=== PATIENT | female | born 1935 | race Caucasian/White ===

== ENCOUNTER → 2018-05-03 | Outpatient (CLI) | END | disposition home or self-care (01) ==

== ENCOUNTER → 2018-07-08 | Outpatient (CLI) | payer MEDICARE, OTHER ==
[~2018-07-08] MED LIST: ASPI81TA52 PO; CALC1TAB79 PO; CALC1TAB98 PO; CHOL100016 PO; ESTR0.753 PO; GABA100C14 PO; GARL10002 PO; HYDR-4011 PO; HYDR12.58 PO; HYDR25TA6 PO; LOSA100T15 PO; MAGN400T27 PO; MAGN500T PO; METO-319 PO; METO-335 PO; OMEG10002 PO; OMEG1CAP90 PO; RED600TA PO; VIT1TABL33 PO; ZINC50TA51 PO
== END | disposition home or self-care (01) ==
LOC: LAB 08:00
PROVIDERS: ATTEND Orthopaedic Surgery
DX: Z01.818 Encounter for other preprocedural examination (principal)
CPT/HCPCS: 87081

== ENCOUNTER 2018-08-04 18:14 | Inpatient (IN) | payer MEDICARE, OTHER ==
[~2018-08-04] VITALS: Ht 165.1 cm; Wt 79.5 kg
[~2018-08-04 18:14] MED LIST changes: -CALC1TAB98 PO; -CHOL100016 PO; -GARL10002 PO; -HYDR25TA6 PO; -MAGN500T PO; -METO-335 PO; -OMEG1CAP90 PO; -RED600TA PO; -VIT1TABL33 PO
[2018-08-04 21:20] VITALS: BP 137/62; PULSE 76; RESP 18
[2018-08-04 22:14] VITALS: Ht 165.1 cm; Wt 79.5 kg
[2018-08-04] MEDS ORDERED: LACTULOSE 30ML CUP PO PRN (23:00)
[2018-08-04] MEDS ORDERED: BISACODYL 10 MG SUPP PR PRN (23:30)
[2018-08-04] MEDS ORDERED: SENNA/DOCUSATE NA (8.6MG/50MG) TAB PO PRN (23:30)
[2018-08-05 02:00] VITALS: BP 128/65; PULSE 71; RESP 18
[2018-08-05] MEDS ORDERED: ONDANSETRON 4 MG INJ IV PRN (03:00)
[2018-08-05] MEDS ORDERED: NACL 0.9% 3 ML SYG IV SCH (03:00)
[2018-08-05] MEDS ORDERED: oxyCODONE 5 MG TAB PO PRN ×2 (03:00)
--- NOTE | 2018-08-05 06:30 | NUR ---
PATIENT ADMITTED FROM [facility] VIA BED. PATIENT IS ALERT AND ORIENTED. RT HIP DRESSING DRY AND INTACT. NO C/O PAIN OR DISCOMFORT. RECREATIONAL ACTIVITIES PROVIDED TO PATIENT; WATCHING TV. SLEPT WELL. CALL LIGHT WITHIN REACH.
[2018-08-05] MEDS: PANTOPRAZOLE (EC) 40 MG TAB PO SCH (06:47)
[2018-08-05 07:00] VITALS: BP 139/65; PULSE 62; RESP 18
--- NOTE | 2018-08-05 07:00 | NUR ---
ON ADMISSION. VERIFIED AND REVIEWED WITH DR. GARCÍA. NO NEW ORDERS.
--- NOTE | 2018-08-05 08:14 | CONS ---
Assessment/Plan Assessment/Plan Assessment/Plan (Daily) 1. Doing well post op right hip replacement. 2. HBP, controlled. 3. Anemia is stable Consultation Date/Type/Reason Admit Date/Time Aug 04, 2018 at 21:30 Initial Consult Date Date/Time of Note DATE: 08/05/18 TIME: 08:12 Detailed Summary Respiratory: No cough, No shortness of breath Cardiovascular: No chest pain Gastrointestinal: no complaints Musculoskeletal: bone/joint pain (mild right hip pain) Exam/Review of Systems Exam Vitals Vital Signs Date Temp Pulse Resp B/P (MAP) Pulse Ox O2 O2 Flow FiO2 Time Delivery Rate 08/05/18 97.8 71 18 128/65 96 Room Air 02:00 (86) Intake and Output 08/04/18 08/04/18 08/05/18 1515:00 23:00 07:00 IntakeIntake Total 550 ml BalanceBalance 550 ml Neck: No jvd Respiratory: clear to auscultation Cardiovascular: regular rate and rhythm Gastrointestinal: soft Extremities: No edema, No tenderness Results Result Diagram: 08/05/18 0611 08/05/18 0611 Results 24hrs Laboratory Tests Test 08/05/18 01:40 08/05/18 06:11 Urine Color YELLOW Urine Clarity CLEAR Urine pH 7.0 Urine Specific [place] 1.010 Urine Ketones NEGATIVE Urine Nitrite NEGATIVE Urine Bilirubin NEGATIVE Urine Urobilinogen NEGATIVE Urine Leukocyte Esterase NEGATIVE Urine Hemoglobin NEGATIVE Urine Glucose NEGATIVE Urine Total Protein NEGATIVE White Blood Count 5.4 Red Blood Count 2.84 L Hemoglobin 8.9 L Hematocrit 27.8 L Mean Corpuscular Volume 97.9 Mean Corpuscular Hemoglobin 31.3 Mean Corpuscular Hemoglobin Concent 32.0 Red Cell Distribution Width 13.2 Platelet Count 263 Mean Platelet Volume 9.5 Immature Granulocytes % 0.600 H Neutrophils % 58.8 Lymphocytes % 25.1 Monocytes % 8.3 Eosinophils % 6.5 Basophils % 0.7 Nucleated Red Blood Cells % 0.0 Immature Granulocytes # 0.030 Neutrophils # 3.2 Lymphocytes # 1.4 Monocytes # 0.5 Eosinophils # 0.4 Basophils # 0.0 Nucleated Red Blood Cells # 0.0 Sodium Level 141 Potassium Level 4.2 Chloride Level 105 Carbon Dioxide Level 28 Anion Gap 8 Blood Urea Nitrogen 20 Creatinine 0.85 Est Glomerular Filtrat Rate mL/min Glucose Level 87 Calcium Level 9.5 Total Bilirubin 0.1 L Direct Bilirubin 0.00 Indirect Bilirubin 0.1 Aspartate Amino Transf (AST/SGOT) 20 Alanine Aminotransferase (ALT/SGPT) 11 L Alkaline Phosphatase 59 Total Protein 6.1 Albumin 3.3 Globulin 2.80 Albumin/Globulin Ratio 1.17 Medications Medication Current Medications Docusate Sodium (Colace) 100 mg BID PO ; Start 08/05/18 at 09:00 Lactulose (Enulose) 20 gm DAILY PRN PO CONSTIPATION; Start 08/04/18 at 23:00 Acetaminophen (Tylenol Tab) 650 mg Q4H PRN PO MILD PAIN(1-3)OR ELEVATED TEMP; Start 08/04/18 at 23:30 Aspirin (Halfprin) 81 mg BID PO ; Start 08/05/18 at 09:00 Bisacodyl (Dulcolax Supp) 10 mg DAILY PRN [place] CONSTIPATION; Start 08/04/18 at 23:30 Calcium Carbonate (Tums) 500 mg BID PO ; Start 08/05/18 at 09:00 Celecoxib (Celebrex) 100 mg BID PO ; Start 08/05/18 at 09:00 Cholecalciferol (Vitamin D) 2,000 unit DAILY PO ; Start 08/05/18 at 09:00 Clonidine (Catapres) 0.1 mg TID PO ; Start 08/05/18 at 09:00 Senna/Docusate Sodium (Senokot-S) 2 tab BID PRN PO CONSTIPATION; Start 08/04/18 at 23:30 Docusate Sodium/ Ferrous Fumarate (Олег-Sequels) 1 tab BID PO ; Start 08/05/18 at 09:00 Gabapentin (Neurontin) 100 mg TID PO ; Start 08/05/18 at 09:00 Pantoprazole (Protonix Tab) 40 mg DAILY@06 PO Last administered on 08/05/18at 06:47; Admin Dose 40 MG; Start 08/05/18 at 06:00 Polyethylene Glycol (Miralax) 17 gm DAILY PO ; Start 08/05/18 at 09:00 IV Flush (NS 3 ml) 3 ml PER PROTOCOL IV ; Start 08/05/18 at 03:00 Hydrochlorothiazide (Hydrochlorothiazide) 12.5 mg DAILY PO ; Start 08/05/18 at 09:00 Losartan Potassium (Cozaar) 100 mg DAILY PO ; Start 1/31/19 at 09:00 Magnesium Oxide (Mag-Ox 400) 400 mg DAILY PO ; Start 08/05/18 at 09:00 Metoprolol Succinate (Toprol Xl) 50 mg BID PO ; Start 08/05/18 at 09:00 Ondansetron HCl (Zofran Inj) 4 mg Q4H PRN IV NAUSEA AND/OR VOMITING; Start 08/05/18 at 03:00 Oxycodone HCl (Roxicodone) 10 mg Q4H PRN PO SEVERE PAIN LEVEL 7-10; Start 08/05/18 at 03:00 Oxycodone HCl (Roxicodone) 5 mg Q4H PRN PO MODERATE PAIN LEVEL 4-6; Start 08/05 at 03:00 HALINA GARCÍA MD Aug 05, 2018 08:14
[2018-08-05] MEDS: CHOLECALCIFEROL 2,000 UNIT CAP PO SCH (08:58)
[2018-08-05] MEDS: ASPIRIN (EC) 81 MG TAB PO SCH ×2 (08:58→20:10)
[2018-08-05] MEDS: MAGNESIUM OXIDE 400 MG TAB PO SCH (08:58)
[2018-08-05] MEDS: CALCIUM CARBONATE 500 MG CHEW TAB PO SCH ×2 (08:59→20:11)
[2018-08-05] MEDS: CELECOXIB 100 MG CAP PO SCH ×2 (08:59→20:11)
[2018-08-05] MEDS: METOPROLOL (XL) 50 MG TAB PO SCH ×2 (08:59→20:19)
[2018-08-05] MEDS: FERROUS FUMARATE (SR) TAB PO SCH ×2 (08:59→20:11)
[2018-08-05] MEDS: DOCUSATE SODIUM 100 MG CAP PO SCH ×2 (09:00→20:19)
[2018-08-05] MEDS: POLYETHYLENE GLYCOL 17 GM PACKET PO SCH (09:00)
[2018-08-05] MEDS: GABAPENTIN 100 MG CAP PO SCH ×3 (09:00→20:10)
[2018-08-05] MEDS: HYDROCHLOROTHIAZIDE 12.5 MG CAP PO SCH (09:00)
--- NOTE | 2018-08-05 10:23 | NUR ---
PT EVALUATION: A 83 yo female with progressive disabling pain involving Rt hip, under went Rt THR through the anterior approach on 07/29/18. PMH: HTN, OP, shingles, appendectomy, Lt THR, B salpingo-oophorectomy hysterectomy. Now transferred to [facility] for continuation of care and rehab. PLOF: per pt report-lives alone in a 2 story house with 12 steps inside. Pt was independent with gait and ADL's. Owns FWW and SPC. CLOF: see tech record. Pt was educated on safety, POC, role of PT, STG/LTG's, WBAT RLE, Anterior hip precautions with good understanding. Precautions: fall risk, Rt WBAT, Rt anterior hip precautions. Recommendations: owns FWW. BSC and home with HHPT STG: Bed Mobility: CGA Transfers SBA with FWW Gait SBA with FWW 100ft Stairs SBA with 1 rail/SPC 12steps LTG: Bed Mobility: SUPERVISION Transfers MOD IND with FWW Gait MOD IND with FWW 150ft Stairs SUP with 1 rail/SPC 12steps
[2018-08-05] MEDS: LOSARTAN 50 MG TAB PO SCH (11:59)
--- NOTE | 2018-08-05 13:12 | CONS ---
DATE OF ADMISSION: 08/04/2018 DATE OF CONSULTATION: 08/05/2018 TYPE OF CONSULTATION: Rehabilitation post-admission physician evaluation. REHABILITATION IMPAIRMENT CATEGORY: Other orthopedic injury with right hip severe osteoarthritis sta tus post right total hip replacement. ACTIVE COMORBIDITIES: 1. Acute pain syndrome. 2. Hypertension. 3. History of left total hip replacement. 4. History of bilateral salpingo-oophorectomy. 5. Impairments in self-care and mobility. HISTORY OF PRESENT ILLNESS: The patient is a very pleasant 83-year-old female with a history of oste oarthritis and left hip replacement, who was noted to have severe increasing right hip pain and under went a right total hip replacement. Her postoperative course has been notable for anemia, significan t pain and significant impairments in self-care and mobility as compared to baseline. The patient wang s been cleared to transfer to the rehabilitation unit for comprehensive interdisciplinary rehab care. FUNCTIONAL HISTORY: Prior to recent events, she was independent in self-care tasks and mobility. Cu rrently, she requires minimal to moderate assist for self-care and mobility tasks. I have reviewed the preadmission screen and patient's current functional status is consistent with [facility] preadmission screen. FAMILY AND SOCIAL HISTORY: The patient lives at home alone in a 2-jarek home and hopes to return [facility] upon discharge. PAST MEDICAL HISTORY: 1. Hypertension. 2. Osteoporosis. 3. History of shingles. 4. Left hip replacement. 5. Bilateral salpingo-oophorectomy and hysterectomy. CURRENT MEDICATIONS: 1. Aspirin 81 mg p.o. b.i.d. 2. Tums 500 mg p.o. b.i.d. 3. Celebrex 100 mg p.o. b.i.d. 4. Vitamin D 2000 units p.o. daily. 5. Senokot 2 tabs p.o. b.i.d. 6. 1 tab p.o. b.i.d. 7. Neurontin 100 mg p.o. t.i.d. 8. Hydrochlorothiazide 12.5 mg p.o. daily. 9. Cozaar 100 mg p.o. daily. 10. Magnesium oxide 400 mg p.o. daily. 11. Toprol-XL 50 mg p.o. b.i.d. 12. Oxycodone 10 mg p.o. q.4 hours p.r.n. 13. Protonix 40 mg p.o. daily. 14. MiraLax 1 packet p.o. daily. ALLERGIES: CODEINE. PHYSICAL EXAMINATION: VITAL SIGNS: The patient is currently afebrile with stable vital signs. HEENT: Extraocular motions are intact. Oropharynx is clear. NECK: Supple. LUNGS: Clear anteriorly. CARDIAC: S1, S2. ABDOMEN: Soft, nontender, positive bowel sounds. NEUROLOGIC: She is awake and alert and oriented x3. She follows simple 1-step commands. Cranial ne rves are grossly intact. She has good strength in bilateral upper extremity and the left lower extre mity. Dorsiflexion and plantar flexion are intact on the right. PLAN: The patient has been admitted for comprehensive interdisciplinary acute rehab and is anticipat ed to tolerate 3 hours of daily therapy in divided doses for at least 5/7 days a week. The treatment plan will include: 1. Physical therapy to focus on bed mobility, transfers and household ambulation with the goal of wang ving the patient reach a standby assist level. The goal will also include stair mobility given that the patient does live in a 2-jarek home. 2. Occupational therapy to focus on hygiene, grooming, dressing, bathing and toileting activities wi th goal of having patient reach standby assist level. 3. Rehabilitation nursing for carryover of therapeutic interventions, the goal of continent of bowel and bladder and the goal of pain adequately managed on oral medications. REHABILITATION BARRIER: Multiple stairs at home. INTERVENTION FOR BARRIER: Stair training. ESTIMATED LENGTH OF STAY: 10 days. DISPOSITION GOAL: Home. I acknowledge that I performed a full physical examination on this patient within 24 hours of admissi on to the rehabilitation unit. I believe the patient is a good candidate for comprehensive interdisc iplinary rehab care and is anticipated to make reasonable goals in a reasonable period of time as out lined above. Dictated By: ESTHER LOPEZ/NTS Conf#: [id number] DID#: [id number] CC: HALINA GARCÍA MD;*EndCC*
[2018-08-05 14:00] VITALS: BP 89/48; PULSE 59; RESP 18
--- NOTE | 2018-08-05 15:42 | NUR ---
Awake, alert and oriented. Respirations even and non labored. C/O minimal incision pain, refused pain medication. Able to tolerate PT, OOB and ambulation. Fall prevention observed at all times. No distress noted.
--- NOTE | 2018-08-05 18:20 | NUR ---
Patient is alert and breathing even. no SOB. no c/o pain at this time. patient is cooperative during care. s/p right hip arthroplasty. Dressing intact. no drainage lake on the dressing. meds and diet given as ordered. reminded patient to call when needed help.
[2018-08-05 19:34] VITALS: BP 105/51; PULSE 66; RESP 18
[2018-08-06 02:00] VITALS: BP 120/58; PULSE 70; RESP 18
[2018-08-06] MEDS: PANTOPRAZOLE (EC) 40 MG TAB PO SCH (06:06)
--- NOTE | 2018-08-06 06:25 | NUR ---
Patient is A/O x 4. Patient's condition stable. No distress. No c/o pain. Needs are attended. Patient slept well during the night. Call light in reach. Bed alarm on for safety precaution.
[2018-08-06 07:30] VITALS: BP 126/63; PULSE 69; RESP 20
--- NOTE | 2018-08-06 08:33 | CONS ---
Assessment/Plan Assessment/Plan Assessment/Plan (Daily) 1. Post op right hip pain, doing quite well with OT and PT 2. Hypertension well controlled. Consultation Date/Type/Reason Admit Date/Time Aug 04, 2018 at 21:30 Initial Consult Date Date/Time of Note DATE: 08/06/18 TIME: 08:25 Detailed Summary Cardiovascular: No chest pain, No orthopenea Gastrointestinal: no complaints Genitourinary: no complaints Musculoskeletal: bone/joint pain (mild right hip pain) Exam/Review of Systems Exam Vitals Vital Signs Date Temp Pulse Resp B/P (MAP) Pulse Ox O2 O2 Flow FiO2 Time Delivery Rate 08/06/18 97.9 70 18 120/58 97 Room Air 02:00 (78) Intake and Output 08/05/18 08/05/18 08/06/18 1515:00 23:00 07:00 IntakeIntake Total 1920 ml 500 ml OutputOutput Total 1250 ml 300 ml BalanceBalance 670 ml 200 ml Neck: No jvd Respiratory: clear to auscultation Cardiovascular: regular rate and rhythm Gastrointestinal: soft Extremities: No edema, No pitting pedal edema Results Result Diagram: 08/05/1861008/05/18 0611 Medications Medication Current Medications Docusate Sodium (Colace) 100 mg BID PO ; Start 08/05/18 at 09:00 Lactulose (Enulose) 20 gm DAILY PRN PO CONSTIPATION; Start 08/04/18 at 23:00 Acetaminophen (Tylenol Tab) 650 mg Q4H PRN PO MILD PAIN(1-3)OR ELEVATED TEMP; Start 08/04/18 at 23:30 Aspirin (Halfprin) 81 mg BID PO Last administered on 08/05/18at 20:10; Admin Dose 81 MG; Start 08/05/18 at 09:00 Bisacodyl (Dulcolax Supp) 10 mg DAILY PRN [place] CONSTIPATION; Start 08/04/18 at 23:30 Calcium Carbonate (Tums) 500 mg BID PO Last administered on 08/05/18at 20:11; Admin Dose 500 MG; Start 08/05/18 at 09:00 Celecoxib (Celebrex) 100 mg BID PO Last administered on 08/05/18at 20:11; Admin Dose 100 MG; Start 08/05/18 at 09:00 Cholecalciferol (Vitamin D) 2,000 unit DAILY PO Last administered on 08/05/18 08:58; Admin Dose 2,000 UNIT; Start 08/05/18 at 09:00 Clonidine (Catapres) 0.1 mg TID PO Last administered on 08/05/18 20:19; Admin Dose 0.1 MG; Start 08/05/18 at 09:00 Senna/Docusate Sodium (Senokot-S) 2 tab BID PRN PO CONSTIPATION; Start 08/04/18 at 23:30 Docusate Sodium/ Ferrous Fumarate (Олег-Sequels) 1 tab BID PO Last administered on 08/05/18 20:11; Admin Dose 1 TAB; Start 08/05/18 at 09:00 Gabapentin (Neurontin) 100 mg TID PO Last administered on 08/05/18 20:10; Admin Dose 100 MG; Start 08/05/18 at 09:00 Pantoprazole (Protonix Tab) 40 mg DAILY@06 PO Last administered on 08/06/18 06:06; Admin Dose 40 MG; Start 08/05/18 at 06:00 Polyethylene Glycol (Miralax) 17 gm DAILY PO ; Start 08/05/18 at 09:00 IV Flush (NS 3 ml) 3 ml PER PROTOCOL IV ; Start 08/05/18 at 03:00 Hydrochlorothiazide (Hydrochlorothiazide) 12.5 mg DAILY PO Last administered on 08/05/18at 09:00; Admin Dose 12.5 MG; Start 08/05/18 at 09:00 Losartan Potassium (Cozaar) 100 mg DAILY PO Last administered on 08/05/18 11:59; Admin Dose 100 MG; Start 08/05/18 at 09:00 Magnesium Oxide (Mag-Ox 400) 400 mg DAILY PO Last administered on 08/05/18 08:58; Admin Dose 400 MG; Start 08/05/18 at 09:00 Metoprolol Succinate (Toprol Xl) 50 mg BID PO Last administered on 08/05/18 08:59; Admin Dose 50 MG; Start 08/05/18 at 09:00 Ondansetron HCl (Zofran Inj) 4 mg Q4H PRN IV NAUSEA AND/OR VOMITING; Start 08/05/18 at 03:00 Oxycodone HCl (Roxicodone) 10 mg Q4H PRN PO SEVERE PAIN LEVEL 7-10; Start 08/05/18 at 03:00 Oxycodone HCl (Roxicodone) 5 mg Q4H PRN PO MODERATE PAIN LEVEL 4-6; Start 08/05/18 at 03:00 HALINA GARCÍA MD Aug 06, 2018 08:33
--- NOTE | 2018-08-06 08:59 | PN ---
Date/Time of Note Date/Time of Note DATE: 08/06/18 TIME: 08:59 Subjective Pain under good control Objective Vital Signs Date Temp Pulse Resp B/P (MAP) Pulse Ox O2 O2 Flow FiO2 Time Delivery Rate 08/06/18 97.9 70 18 120/58 97 Room Air 02:00 (78) Intake and Output 08/05/18 08/05/18 08/06/18 1515:00 23:00 07:00 IntakeIntake Total 1920 ml 500 ml OutputOutput Total 1250 ml 300 ml BalanceBalance 670 ml 200 ml Exam pulm-cta min/mod assist Results/Medications Result Diagram: 08/05/18 0611 08/05/18 0611 Medications Current Medications Docusate Sodium (Colace) 100 mg BID PO ; Start 08/05/18 at 09:00 Lactulose (Enulose) 20 gm DAILY PRN PO CONSTIPATION; Start 08/04/18 at 23:00 Acetaminophen (Tylenol Tab) 650 mg Q4H PRN PO MILD PAIN(1-3)OR ELEVATED TEMP; Start 08/04/18 at 23:30 Aspirin (Halfprin) 81 mg BID PO Last administered on 08/05/18at 20:10; Admin Dose 81 MG; Start 08/05/18 at 09:00 Bisacodyl (Dulcolax Supp) 10 mg DAILY PRN [place] CONSTIPATION; Start 08/04/18 at 23:30 Calcium Carbonate (Tums) 500 mg BID PO Last administered on 08/05/18at 20:11; Admin Dose 500 MG; Start 08/05/18 at 09:00 Celecoxib (Celebrex) 100 mg BID PO Last administered on 08/05/18at 20:11; Admin Dose 100 MG; Start 08/05/18 at 09:00 Cholecalciferol (Vitamin D) 2,000 unit DAILY PO Last administered on 08/05/18at 08:58; Admin Dose 2,000 UNIT; Start 08/05/18 at 09:00 Clonidine (Catapres) 0.1 mg TID PO Last administered on 08/05/18at 20:19; Admin Dose 0.1 MG; Start 08/05/18 at 09:00 Senna/Docusate Sodium (Senokot-S) 2 tab BID PRN PO CONSTIPATION; Start 08/04/18 at 23:30 Docusate Sodium/ Ferrous Fumarate (Олег-Sequels) 1 tab BID PO Last administered on 08/05/18at 20:11; Admin Dose 1 TAB; Start 08/05/18 at 09:00 Gabapentin (Neurontin) 100 mg TID PO Last administered on 08/05/18at 20:10; Admin Dose 100 MG; Start 08/05/18 at 09:00 Pantoprazole (Protonix Tab) 40 mg DAILY@06 PO Last administered on 08/06/18 06:06; Admin Dose 40 MG; Start 08/05/18 at 06:00 Polyethylene Glycol (Miralax) 17 gm DAILY PO ; Start 08/05/18 at 09:00 IV Flush (NS 3 ml) 3 ml PER PROTOCOL IV ; Start 08/05/18 at 03:00 Hydrochlorothiazide (Hydrochlorothiazide) 12.5 mg DAILY PO Last administered on 08/05/18at 09:00; Admin Dose 12.5 MG; Start 08/05/18 at 09:00 Losartan Potassium (Cozaar) 100 mg DAILY PO Last administered on 08/05/18at 11:59; Admin Dose 100 MG; Start 08/05/18 at 09:00 Magnesium Oxide (Mag-Ox 400) 400 mg DAILY PO Last administered on 08/05/18at 08:58; Admin Dose 400 MG; Start 08/05/18 at 09:00 Metoprolol Succinate (Toprol Xl) 50 mg BID PO Last administered on 08/05/18at 08:59; Admin Dose 50 MG; Start 08/05/18 at 09:00 Ondansetron HCl (Zofran Inj) 4 mg Q4H PRN IV NAUSEA AND/OR VOMITING; Start 08/05/18 at 03:00 Oxycodone HCl (Roxicodone) 10 mg Q4H PRN PO SEVERE PAIN LEVEL 7-10; Start 08/05/18 at 03:00 Oxycodone HCl (Roxicodone) 5 mg Q4H PRN PO MODERATE PAIN LEVEL 4-6; Start 08/05/18 at 03:00 Assessment/Plan Additional Assessment/Plan Rehab- Other orthopedic injury with right hip severe osteoarthritis status post right total hip replacement. Patient tolerating rehab program well Acute pain syndrome. Hypertension. History of left total hip replacement. History of bilateral salpingo-oophorectomy. ESTHER RUSSELL MDb 1, 2019 08:59
[2018-08-06] MEDS: POLYETHYLENE GLYCOL 17 GM PACKET PO SCH ×2 (09:00→09:29)
[2018-08-06] MEDS: GABAPENTIN 100 MG CAP PO SCH ×4 (09:29→21:00)
[2018-08-06] MEDS: CALCIUM CARBONATE 500 MG CHEW TAB PO SCH ×2 (09:29→21:02)
[2018-08-06] MEDS: CHOLECALCIFEROL 2,000 UNIT CAP PO SCH (09:29)
[2018-08-06] MEDS: FERROUS FUMARATE (SR) TAB PO SCH ×2 (09:29→21:02)
[2018-08-06] MEDS: MAGNESIUM OXIDE 400 MG TAB PO SCH (09:29)
[2018-08-06] MEDS: ASPIRIN (EC) 81 MG TAB PO SCH ×2 (09:29→21:02)
[2018-08-06] MEDS: LOSARTAN 50 MG TAB PO SCH (09:29)
[2018-08-06] MEDS: CELECOXIB 100 MG CAP PO SCH ×2 (09:29→21:00)
[2018-08-06] MEDS: METOPROLOL (XL) 50 MG TAB PO SCH ×2 (09:30→21:02)
[2018-08-06] MEDS: DOCUSATE SODIUM 100 MG CAP PO SCH ×2 (09:30→21:02)
[2018-08-06] MEDS: HYDROCHLOROTHIAZIDE 12.5 MG CAP PO SCH (09:30)
[2018-08-06] MEDS ORDERED: POLYETHYLENE GLYCOL 17 GM PACKET PO PRN (10:00)
[2018-08-06 14:00] VITALS: BP 110/50; PULSE 65; RESP 20
--- NOTE | 2018-08-06 17:00 | NUR ---
Patient in bed talking to her children. Offered TV & educational materials for recreational activities. Alert, oriented x 4. No SOB. Denies pain. Gave health teaching about celebrex medication adherence. Patient receptive. Kept clean & dry. All due meds given. Call light within reach. Bed alarm on & in low position. Kept comfortable.
[2018-08-06 19:33] VITALS: BP 125/68; PULSE 68; RESP 18
--- NOTE | 2018-08-06 21:00 | NUR ---
Celebrex and Gabapentin refused She states "I don't have any pain, why do I have to take any pain killers?" Information about the medicines discussed. Celebrex 100 mg PO and Gabapentin 100 mg PO as standing order were refused. Will continue to monitor
[2018-08-07 02:00] VITALS: BP 117/63; PULSE 64; RESP 18
--- NOTE | 2018-08-07 05:40 | NUR ---
End of Shift Note During the shift, pt refused to take Celebrex 100 mg PO and Gabapentin 100 mg PO as standing order at 2100. Information about the medicine discussed. No complaints made. No PRN medications given. Bed on lowest position, side rails up 2x, bed alarm on, and call light within reach. will continue to monitor
[2018-08-07] MEDS: PANTOPRAZOLE (EC) 40 MG TAB PO SCH (06:32)
[2018-08-07 07:00] VITALS: BP 124/59; PULSE 61; RESP 16
[2018-08-07] MEDS: CELECOXIB 100 MG CAP PO SCH (09:00)
[2018-08-07] MEDS: GABAPENTIN 100 MG CAP PO SCH (09:00)
[2018-08-07] MEDS: CALCIUM CARBONATE 500 MG CHEW TAB PO SCH ×2 (09:08→20:21)
[2018-08-07] MEDS: FERROUS FUMARATE (SR) TAB PO SCH ×2 (09:08→20:21)
[2018-08-07] MEDS: DOCUSATE SODIUM 100 MG CAP PO SCH ×2 (09:08→20:21)
[2018-08-07] MEDS: CHOLECALCIFEROL 2,000 UNIT CAP PO SCH (09:08)
[2018-08-07] MEDS: METOPROLOL (XL) 50 MG TAB PO SCH ×2 (09:08→20:22)
[2018-08-07] MEDS: ASPIRIN (EC) 81 MG TAB PO SCH ×2 (09:09→20:21)
[2018-08-07] MEDS: MAGNESIUM OXIDE 400 MG TAB PO SCH (09:09)
[2018-08-07] MEDS: HYDROCHLOROTHIAZIDE 12.5 MG CAP PO SCH (09:09)
[2018-08-07] MEDS: LOSARTAN 50 MG TAB PO SCH (09:09)
--- NOTE | 2018-08-07 09:33 | PN ---
Date/Time of Note Date/Time of Note DATE: 08/07/18 TIME: 09:32 Subjective Doing well Objective Vital Signs Date Temp Pulse Resp B/P (MAP) Pulse Ox O2 O2 Flow FiO2 Time Delivery Rate 08/07/18 98.7 61 16 124/59 96 Room Air 07:00 (80) Intake and Output 08/06/18 08/06/18 08/07/18 1515:00 23:00 07:00 IntakeIntake Total 150 ml 1250 ml 750 ml OutputOutput Total 350 ml BalanceBalance 150 ml 1250 ml 400 ml Exam cga ambulation pulm-cta Results/Medications Result Diagram: 08/05/18 0611 08/05/18 0611 Medications Current Medications Docusate Sodium (Colace) 100 mg BID PO Last administered on 08/07/18 09:08; Admin Dose 100 MG; Start 08/05/18 at 09:00 Lactulose (Enulose) 20 gm DAILY PRN PO CONSTIPATION; Start 08/04/18 at 23:00 Acetaminophen (Tylenol Tab) 650 mg Q4H PRN PO MILD PAIN(1-3)OR ELEVATED TEMP; Start 08/04/18 at 23:30 Aspirin (Halfprin) 81 mg BID PO Last administered on 08/07/18 09:09; Admin Dose 81 MG; Start 08/05/18 at 09:00 Bisacodyl (Dulcolax Supp) 10 mg DAILY PRN [place] CONSTIPATION; Start 08/04/18 at 23:30 Calcium Carbonate (Tums) 500 mg BID PO Last administered on 08/07/18 09:08; Admin Dose 500 MG; Start 08/05/18 at 09:00 Celecoxib (Celebrex) 100 mg BID PO Last administered on 08/06/18 09:29; Admin Dose 100 MG; Start 08/05/18 at 09:00 Cholecalciferol (Vitamin D) 2,000 unit DAILY PO Last administered on 08/07/18 09:08; Admin Dose 2,000 UNIT; Start 08/05/18 at 09:00 Clonidine (Catapres) 0.1 mg TID PO Last administered on 08/06/18 21:03; Admin Dose 0.1 MG; Start 08/05/18 at 09:00 Senna/Docusate Sodium (Senokot-S) 2 tab BID PRN PO CONSTIPATION; Start 08/04/18 at 23:30 Docusate Sodium/ Ferrous Fumarate (Олег-Sequels) 1 tab BID PO Last administered on 08/07/18at 09:08; Admin Dose 1 TAB; Start 08/05/18 at 09:00 Gabapentin (Neurontin) 100 mg TID PO Last administered on 08/06/18at 09:29; Admin Dose 100 MG; Start 08/05/18 at 09:00 Pantoprazole (Protonix Tab) 40 mg DAILY@06 PO Last administered on 08/07/18at 06:32; Admin Dose 40 MG; Start 08/05/18 at 06:00 IV Flush (NS 3 ml) 3 ml PER PROTOCOL IV ; Start 08/05/18 at 03:00 Hydrochlorothiazide (Hydrochlorothiazide) 12.5 mg DAILY PO Last administered on 08/07/18 09:09; Admin Dose 12.5 MG; Start 08/05/18 at 09:00 Losartan Potassium (Cozaar) 100 mg DAILY PO Last administered on 08/07/18at 09:09; Admin Dose 100 MG; Start 08/05/18 at 09:00 Magnesium Oxide (Mag-Ox 400) 400 mg DAILY PO Last administered on 08/07/18 09:09; Admin Dose 400 MG; Start 08/05/18 at 09:00 Metoprolol Succinate (Toprol Xl) 50 mg BID PO Last administered on 08/07/18at 09:08; Admin Dose 50 MG; Start 08/05/18 at 09:00 Ondansetron HCl (Zofran Inj) 4 mg Q4H PRN IV NAUSEA AND/OR VOMITING; Start 08/05/18 at 03:00 Oxycodone HCl (Roxicodone) 10 mg Q4H PRN PO SEVERE PAIN LEVEL 7-10; Start 08/05/18 at 03:00 Oxycodone HCl (Roxicodone) 5 mg Q4H PRN PO MODERATE PAIN LEVEL 4-6; Start 08/05/18 at 03:00 Polyethylene Glycol (Miralax) 17 gm DAILY PRN PO CONSTIPATION; Start 08/06/18 at 10:00 Assessment/Plan Additional Assessment/Plan Rehab- Other orthopedic injury with right hip severe osteoarthritis status post right total hip replacement. Progressing with rehab program Acute pain syndrome. Hypertension. History of left total hip replacement. History of bilateral salpingo-oophorectomy. ESTHER URSSELL MD Aug 07, 2018 09:32
[2018-08-07] MEDS ORDERED: CELECOXIB 100 MG CAP PO PRN (10:30)
[2018-08-07 14:00] VITALS: BP 168/73; PULSE 66; RESP 16
--- NOTE | 2018-08-07 14:55 | CONS ---
Assessment/Plan Assessment/Plan Hospital Course (Demo Recall) 1. She is post op R THR and is doing well . 2. HTN , well controlled . Consultation Date/Type/Reason Admit Date/Time Aug 04, 2018 at 21:30 Initial Consult Date Type of Consult medicine Date/Time of Note DATE: 08/07/18 TIME: 14:53 24 HR Interval Summary Free Text/Dictation She is post op a R THR . She has no new complaints . Constitutional: no complaints, improved Exam/Review of Systems Exam Vitals Vital Signs Date Temp Pulse Resp B/P (MAP) Pulse Ox O2 O2 Flow FiO2 Time Delivery Rate 08/07/18 98.7 61 16 124/59 96 Room Air 07:00 (80) Intake and Output 08/06/18 08/06/18 08/07/18 1515:00 23:00 07:00 IntakeIntake Total 150 ml 1250 ml 750 ml OutputOutput Total 350 ml BalanceBalance 150 ml 1250 ml 400 ml Constitutional: alert, oriented, well developed Cardiovascular: regular rate and rhythm Gastrointestinal: soft, non-tender Musculoskeletal: nl extremities to inspection Extremities: edema Results Result Diagram: 08/05/1861008/05/18 06 Medications Medication Current Medications Docusate Sodium (Colace) 100 mg BID PO Last administered on 08/07/18at 09:08; Admin Dose 100 MG; Start 08/05/18 at 09:00 Lactulose (Enulose) 20 gm DAILY PRN PO CONSTIPATION; Start 08/04/18 at 23:00 Acetaminophen (Tylenol Tab) 650 mg Q4H PRN PO MILD PAIN(1-3)OR ELEVATED TEMP; Start 08/04/18 at 23:30 Aspirin (Halfprin) 81 mg BID PO Last administered on 08/07/18at 09:09; Admin Dose 81 MG; Start 08/05/18 at 09:00 Bisacodyl (Dulcolax Supp) 10 mg DAILY PRN [place] CONSTIPATION; Start 08/04/18 at 23:30 Calcium Carbonate (Tums) 500 mg BID PO Last administered on 08/07/18at 09:08; A dmin Dose 500 MG; Start 08/05/18 at 09:00 Cholecalciferol (Vitamin D) 2,000 unit DAILY PO Last administered on 08/07/18at 09:08; Admin Dose 2,000 UNIT; Start 08/05/18 at 09:00 Clonidine (Catapres) 0.1 mg TID PO Last administered on 08/07/18at 13:07; Admin Dose 0.1 MG; Start 08/05/18 at 09:00 Senna/Docusate Sodium (Senokot-S) 2 tab BID PRN PO CONSTIPATION; Start 08/04/18 at 23:30 Docusate Sodium/ Ferrous Fumarate (Олег-Sequels) 1 tab BID PO Last administered on 08/07/18 09:08; Admin Dose 1 TAB; Start 08/05/18 at 09:00 Pantoprazole (Protonix Tab) 40 mg DAILY@06 PO Last administered on 08/07/18 06:32; Admin Dose 40 MG; Start 08/05/18 at 06:00 IV Flush (NS 3 ml) 3 ml PER PROTOCOL IV ; Start 08/05/18 at 03:00 Hydrochlorothiazide (Hydrochlorothiazide) 12.5 mg DAILY PO Last administered on 08/07/18 09:09; Admin Dose 12.5 MG; Start 08/05/18 at 09:00 Losartan Potassium (Cozaar) 100 mg DAILY PO Last administered on 08/07/18 09:09; Admin Dose 100 MG; Start 08/05/18 at 09:00 Magnesium Oxide (Mag-Ox 400) 400 mg DAILY PO Last administered on 08/07/18 09:09; Admin Dose 400 MG; Start 08/05/18 at 09:00 Metoprolol Succinate (Toprol Xl) 50 mg BID PO Last administered on 08/07/18 09:08; Admin Dose 50 MG; Start 08/05/18 at 09:00 Ondansetron HCl (Zofran Inj) 4 mg Q4H PRN IV NAUSEA AND/OR VOMITING; Start 08/05/18 at 03:00 Oxycodone HCl (Roxicodone) 10 mg Q4H PRN PO SEVERE PAIN LEVEL 7-10; Start 08/05/18 at 03:00 Oxycodone HCl (Roxicodone) 5 mg Q4H PRN PO MODERATE PAIN LEVEL 4-6; Start 07/08 07/24 at 03:00 Polyethylene Glycol (Miralax) 17 gm DAILY PRN PO CONSTIPATION; Start 08/06/18 at 10:00 Celecoxib (Celebrex) 100 mg BID PRN PO OSTEOARTHRITIS; Start 08/07/18 at 10:30 DEMETRIO WRIGHT MD Aug 07, 2018 14:55
--- NOTE | 2018-08-07 18:23 | NUR ---
Patient in bed watching TV. Offered books & educational materials for recreational activities. Alert, oriented x 4. No SOB. Denies pain. Gave health teaching about hypertensive medication side effects. Patient receptive. Kept clean & dry. All due meds given. Call light within reach. Bed alarm on & in low position. Kept comfortable.
[2018-08-07 19:25] VITALS: BP 122/65; PULSE 68; RESP 18
--- NOTE | 2018-08-08 01:33 | NUR ---
[facility] RN Weekly Summary Dates From: 08/04/18 to 08/08/18 Patient Name: MÓNICA VASQUEZ MR#: [id number] Height: 5 ft 5 in Weight: 175 lbs 4.28 oz 79.500 kg Reason for Visit: TOTAL RIGHT HIP ARTHROPLASTY Precautions: Fall, Standard Date: 08/08/18 Time: 0134 User: TRISTINE LAKHANI Short-term Goals: 1. Will be free from falls/injuries 2. Will have good pain control 3. Will not have skin breakdown Patient's progress: Good Short-term goals not met and reason/barriers: Ongoing Bladder - level of function and accidents: 5, no accidents Bowel - level of function and accidents: 6, no accidents Skin: Non intact Status: Right hip incision Treatment: Dermabond Changes: None Pain: No Level: 0/10 Location: Management: Changes: Functional levels: Self Care: 5 Transfers: 5 Locomotion: 2 Assistance requirements: Communication: 7 Social Cognition: 7 Safety awareness: Yes. Bed alarm on, frequent checks, siderails up x2, call light within reach. Interdisciplinary interactions: MD, RN, PT, OT, SW Patient education: Yes. Education re: fall precautions, medication compliance. Discharge needs: Ongoing Comorbid conditions: 1. Acute pain syndrome. 2. Hypertension. 3. History of left total hip replacement. 4. History of bilateral salpingo-oophorectomy. 5. Impairments in self-care and mobility. Plan of Care continuation: Yes, continue current POC.
[2018-08-08 01:59] VITALS: BP 128/67; PULSE 62; RESP 18
--- NOTE | 2018-08-08 03:28 | NUR ---
Pt asleep at this time, no s/s of distress. No complaints of pain. Due meds given. Needs attended to. Kept clean and comfortable. Safety precautions in place. Frequent checks done. Encouraged to call for help whenever needed. Endorsed to Margarette PERSON for [facility].
[2018-08-08] MEDS: PANTOPRAZOLE (EC) 40 MG TAB PO SCH (06:11)
[2018-08-08 07:00] VITALS: BP 142/61; PULSE 56; RESP 18
--- NOTE | 2018-08-08 07:33 | NUR ---
Pt report received from Melisa PERSON around 0630am to f/up continuation of care.
[2018-08-08] MEDS: DOCUSATE SODIUM 100 MG CAP PO SCH ×2 (08:10→20:38)
[2018-08-08] MEDS: MAGNESIUM OXIDE 400 MG TAB PO SCH (08:10)
[2018-08-08] MEDS: ASPIRIN (EC) 81 MG TAB PO SCH ×2 (08:10→20:38)
[2018-08-08] MEDS: CALCIUM CARBONATE 500 MG CHEW TAB PO SCH ×2 (08:10→20:39)
[2018-08-08] MEDS: HYDROCHLOROTHIAZIDE 12.5 MG CAP PO SCH (08:10)
[2018-08-08] MEDS: FERROUS FUMARATE (SR) TAB PO SCH ×2 (08:10→20:38)
[2018-08-08] MEDS: LOSARTAN 50 MG TAB PO SCH (08:10)
[2018-08-08] MEDS: METOPROLOL (XL) 50 MG TAB PO SCH ×2 (08:11→20:39)
[2018-08-08] MEDS: CHOLECALCIFEROL 2,000 UNIT CAP PO SCH (08:12)
--- NOTE | 2018-08-08 12:12 | CONS ---
Assessment/Plan Assessment/Plan Hospital Course (Demo Recall) 1. She is post op R THR and is doing well . She has slight swelling of the R leg . No pain or calf tenderness . 2. HTN , well controlled . Consultation Date/Type/Reason Admit Date/Time Aug 04, 2018 at 21:30 Initial Consult Date Type of Consult medicine Date/Time of Note DATE: 08/08/18 TIME: 12:09 24 HR Interval Summary Free Text/Dictation Alma Delia is doing better . She is sitting up eating lunch . Constitutional: no complaints, improved Exam/Review of Systems Exam Vitals Vital Signs Date Temp Pulse Resp B/P (MAP) Pulse Ox O2 O2 Flow FiO2 Time Delivery Rate 08/08/18 98.3 56 18 142/61 96 Room Air 07:00 (88) Intake and Output 08/07/18 08/07/18 08/08/18 1515:00 23:00 07:00 IntakeIntake Total 100 ml 900 ml 670 ml BalanceBalance 100 ml 900 ml 670 ml Exam she has edema of R leg more than the L . Constitutional: alert, oriented, well developed Respiratory: clear to auscultation, normal air movement Cardiovascular: regular rate and rhythm, edema Gastrointestinal: soft Extremities: edema Results Result Diagram: 08/05/18 0608/05/18 06 Medications Medication Current Medications Docusate Sodium (Colace) 100 mg BID PO Last administered on 08/08/18at 08:10; Admin Dose 100 MG; Start 08/05/18 at 09:00 Lactulose (Enulose) 20 gm DAILY PRN PO CONSTIPATION; Start 08/04/18 at 23:00 Acetaminophen (Tylenol Tab) 650 mg Q4H PRN PO MILD PAIN(1-3)OR ELEVATED TEMP; Start 08/04/18 at 23:30 Aspirin (Halfprin) 81 mg BID PO Last administered on 08/08/18at 08:10; Admin Dose 81 MG; Start 08/05/18 at 09:00 Bisacodyl (Dulcolax Supp) 10 mg DAILY PRN [place] CONSTIPATION; Start 08/04/18 at 23:30 Calcium Carbonate (Tums) 500 mg BID PO Last administered on 08/08/18at 08:10; Admin Dose 500 MG; Start 08/05/18 at 09:00 Cholecalciferol (Vitamin D) 2,000 unit DAILY PO Last administered on 08/08/18 08:12; Admin Dose 2,000 UNIT; Start 08/05/18 at 09:00 Clonidine (Catapres) 0.1 mg TID PO Last administered on 08/08/18 08:12; Admin Dose 0.1 MG; Start 08/05/18 at 09:00 Senna/Docusate Sodium (Senokot-S) 2 tab BID PRN PO CONSTIPATION; Start 08/04/18 at 23:30 Docusate Sodium/ Ferrous Fumarate (Олег-Sequels) 1 tab BID PO Last administered on 08/08/18 08:10; Admin Dose 1 TAB; Start 08/05/18 at 09:00 Pantoprazole (Protonix Tab) 40 mg DAILY@06 PO Last administered on 08/08/18 06:11; Admin Dose 40 MG; Start 08/05/18 at 06:00 IV Flush (NS 3 ml) 3 ml PER PROTOCOL IV ; Start 08/05/18 at 03:00 Hydrochlorothiazide (Hydrochlorothiazide) 12.5 mg DAILY PO Last administered on 08/08/18 08:10; Admin Dose 12.5 MG; Start 08/05/18 at 09:00 Losartan Potassium (Cozaar) 100 mg DAILY PO Last administered on 08/08/18 08:10; Admin Dose 100 MG; Start 08/05/18 at 09:00 Magnesium Oxide (Mag-Ox 400) 400 mg DAILY PO Last administered on 08/08/18 08:10; Admin Dose 400 MG; Start 08/05/18 at 09:00 Metoprolol Succinate (Toprol Xl) 50 mg BID PO Last administered on 08/07/18 20:22; Admin Dose 50 MG; Start 08/05/18 at 09:00 Ondansetron HCl (Zofran Inj) 4 mg Q4H PRN IV NAUSEA AND/OR VOMITING; Start 08/05/18 at 03:00 Oxycodone HCl (Roxicodone) 10 mg Q4H PRN PO SEVERE PAIN LEVEL 7-10; Start 08/05/18 at 03:00 Oxycodone HCl (Roxicodone) 5 mg Q4H PRN PO MODERATE PAIN LEVEL 4-6; Start 08/05/18 at 03:00 Polyethylene Glycol (Miralax) 17 gm DAILY PRN PO CONSTIPATION; Start 08/06/18 at 10:00 Celecoxib (Celebrex) 100 mg BID PRN PO OSTEOARTHRITIS; Start 08/07/18 at 10:30 DEMETRIO WRIGHT MD Aug 08, 2018 12:12
[2018-08-08 12:13] VITALS: BP 113/46; PULSE 60
[2018-08-08 14:00] VITALS: BP 103/52; PULSE 61; RESP 18
--- NOTE | 2018-08-08 17:20 | NUR ---
Patient is alert and breathing even. No SOB. no c/o at this time . patient is cooperative during care. Patient s/p surgery on right hip. reminded patient with hip precautions able to understand. dressing change was done with no s/sx of infection. no bleeding. meds and diet given as ordered. call light within reach.
[2018-08-08 20:00] VITALS: BP 123/60; PULSE 73; RESP 18
[2018-08-09 02:16] VITALS: BP 145/65; PULSE 66; RESP 18
--- NOTE | 2018-08-09 05:59 | NUR ---
PATIENT SLEPT WELL. NO C/O PAIN OR DISCOMFORT. RECREATIONAL ACTIVITIES PROVIDED TO PATIENT;WATCHING TV, CALL LIGHT WITHIN REACH.
[2018-08-09] MEDS: PANTOPRAZOLE (EC) 40 MG TAB PO SCH (06:27)
[2018-08-09 07:00] VITALS: BP 155/67; PULSE 55; RESP 18
--- NOTE | 2018-08-09 08:29 | CONS ---
Assessment/Plan Assessment/Plan Assessment/Plan (Daily) 1. Doing well post op right hip replacement. 2. HBP, controlled 3. Nocturia, will pursue with u/a and cult and pre and post void baldder ultz 4. Anemia, labs ordered tom Consultation Date/Type/Reason Admit Date/Time Aug 04, 2018 at 21:30 Initial Consult Date Date/Time of Note DATE: 08/09/18 TIME: 08:27 Detailed Summary Respiratory: No cough, No shortness of breath Cardiovascular: No chest pain, No palpitations Gastrointestinal: no complaints Genitourinary: other (modest nocturia without dysuria or hematuria) Musculoskeletal: bone/joint pain (no hip pain) Exam/Review of Systems Exam Vitals Vital Signs Date Temp Pulse Resp B/P (MAP) Pulse Ox O2 O2 Flow FiO2 Time Delivery Rate 08/09/18 97.7 55 18 155/67 99 Room Air 07:00 (96) Intake and Output 08/08/18 08/08/18 08/09/18 1515:00 23:00 07:00 IntakeIntake Total 1680 ml 300 ml OutputOutput Total 800 ml BalanceBalance 880 ml 300 ml Neck: No jvd Respiratory: clear to auscultation Cardiovascular: regular rate and rhythm Gastrointestinal: soft Extremities: No edema, No tenderness Results Result Diagram: 08/05/1811 08/05/18 0611 Medications Medication Current Medications Docusate Sodium (Colace) 100 mg BID PO Last administered on 08/08/18at 20:38; Admin Dose 100 MG; Start 08/05/18 at 09:00 Lactulose (Enulose) 20 gm DAILY PRN PO CONSTIPATION; Start 08/04/18 at 23:00 Acetaminophen (Tylenol Tab) 650 mg Q4H PRN PO MILD PAIN(1-3)OR ELEVATED TEMP; Start 08/04/18 at 23:30 Aspirin (Halfprin) 81 mg BID PO Last administered on 08/08/18at 20:38; Admin Dose 81 MG; Start 08/05/18 at 09:00 Bisacodyl (Dulcolax Supp) 10 mg DAILY PRN [place] CONSTIPATION; Start 08/04/18 at 2 3:30 Calcium Carbonate (Tums) 500 mg BID PO Last administered on 08/08/18at 20:39; Admin Dose 500 MG; Start 08/05/18 at 09:00 Cholecalciferol (Vitamin D) 2,000 unit DAILY PO Last administered on 08/08/18 08:12; Admin Dose 2,000 UNIT; Start 08/05/18 at 09:00 Clonidine (Catapres) 0.1 mg TID PO Last administered on 08/08/18 20:40; Admin Dose 0.1 MG; Start 08/05/18 at 09:00 Senna/Docusate Sodium (Senokot-S) 2 tab BID PRN PO CONSTIPATION; Start 08/04/18 at 23:30 Docusate Sodium/ Ferrous Fumarate (Олег-Sequels) 1 tab BID PO Last administered on 08/08/18 20:38; Admin Dose 1 TAB; Start 08/05/18 at 09:00 Pantoprazole (Protonix Tab) 40 mg DAILY@06 PO Last administered on 08/09/18 06:27; Admin Dose 40 MG; Start 08/05/18 at 06:00 IV Flush (NS 3 ml) 3 ml PER PROTOCOL IV ; Start 08/05/18 at 03:00 Hydrochlorothiazide (Hydrochlorothiazide) 12.5 mg DAILY PO Last administered on 08/08/18 08:10; Admin Dose 12.5 MG; Start 08/05/18 at 09:00 Losartan Potassium (Cozaar) 100 mg DAILY PO Last administered on 08/08/18 08:10; Admin Dose 100 MG; Start 08/05/18 at 09:00 Magnesium Oxide (Mag-Ox 400) 400 mg DAILY PO Last administered on 08/08/18 08:10; Admin Dose 400 MG; Start 08/05/18 at 09:00 Metoprolol Succinate (Toprol Xl) 50 mg BID PO Last administered on 08/08/18 20:39; Admin Dose 50 MG; Start 08/05/18 at 09:00 Ondansetron HCl (Zofran Inj) 4 mg Q4H PRN IV NAUSEA AND/OR VOMITING; Start 08/05/18 at 03:00 Oxycodone HCl (Roxicodone) 10 mg Q4H PRN PO SEVERE PAIN LEVEL 7-10; Start 08/05/18 at 03:00 Oxycodone HCl (Roxicodone) 5 mg Q4H PRN PO MODERATE PAIN LEVEL 4-6; Start 08/05/18 at 03:00 Polyethylene Glycol (Miralax) 17 gm DAILY PRN PO CONSTIPATION; Start 08/06/18 at 10:00 Celecoxib (Celebrex) 100 mg BID PRN PO OSTEOARTHRITIS; Start 08/07/18 at 10:30 HALINA GARCÍA MD Aug 09, 2018 08:29
[2018-08-09] MEDS: FERROUS FUMARATE (SR) TAB PO SCH ×2 (09:02→20:41)
[2018-08-09] MEDS: CHOLECALCIFEROL 2,000 UNIT CAP PO SCH (09:03)
[2018-08-09] MEDS: CALCIUM CARBONATE 500 MG CHEW TAB PO SCH ×2 (09:03→20:41)
[2018-08-09] MEDS: DOCUSATE SODIUM 100 MG CAP PO SCH ×2 (09:03→20:41)
[2018-08-09] MEDS: MAGNESIUM OXIDE 400 MG TAB PO SCH (09:03)
[2018-08-09] MEDS: ASPIRIN (EC) 81 MG TAB PO SCH ×2 (09:03→20:42)
[2018-08-09] MEDS: LOSARTAN 50 MG TAB PO SCH (09:07)
[2018-08-09] MEDS: HYDROCHLOROTHIAZIDE 12.5 MG CAP PO SCH (09:07)
[2018-08-09] MEDS: METOPROLOL (XL) 50 MG TAB PO SCH ×2 (09:12→20:42)
--- NOTE | 2018-08-09 09:37 | NUR ---
[facility] PT Weekly Summary Dates From: 08/05/18 to 08/09/18 Patient Name: MÓNICA VASQUEZ MR#: [id number] Height: 5 ft 5 in Weight: 175 lbs 4.28 oz 79.500 kg Reason for Visit: TOTAL RIGHT HIP ARTHROPLASTY Precautions: fall risk, Rt WBAT, Rt anterior hip precautions. Date: 08/09/18 Time: 0937 User: TALON HARDIN Short-term Goals: Bed Mobility: CGA Transfers SBA with FWW Gait SBA with FWW 100ft Stairs SBA with 1 rail/SPC 12steps Pt is making good gains while here in [facility]. Currently demonstrates min A with bed mobility, CGA with transfers using a FWW, CGA gait x 75 ft with a FWW, and CGA 5-step stair using B rails. Pt progressing well toward set STGs. Cont POC to achieve all goals. Recommendations: BSC and home with HHPT. Pt already owns a FWW.
--- NOTE | 2018-08-09 13:11 | PN ---
Date/Time of Note Date/Time of Note DATE: 08/09/18 TIME: 13:09 Objective Vital Signs Date Temp Pulse Resp B/P (MAP) Pulse Ox O2 O2 Flow FiO2 Time Delivery Rate 08/09/18 97.7 55 18 155/67 99 Room Air 07:00 (96) Intake and Output 08/08/18 08/08/18 08/09/18 1515:00 23:00 07:00 IntakeIntake Total 1680 ml 300 ml OutputOutput Total 800 ml BalanceBalance 880 ml 300 ml Exam INTERDISCIPLINARY TEAM CONFERENCE Physical Exam: Pulm-cta Abd-aabd BOWEL- Cont BLADDER-Cont SKIN- intact OT- DRESSING- sba/min BATHING-sba/min TOILETING-min PT- BED MOBILITY-min TRANSFERS-cga AMBULATION-cga 75 A/P- Interdisciplinary team conference held today. Please see interdisciplinary sheet. Working toward d.c. on 08/13 with post discharge follow up of physical therapy, occupational therapy. Results/Medications Result Diagram: 08/05/18 0608/05/18 0611 Medications Current Medications Docusate Sodium (Colace) 100 mg BID PO Last administered on 08/09/18 09:03; Admin Dose 100 MG; Start 08/05/18 at 09:00 Lactulose (Enulose) 20 gm DAILY PRN PO CONSTIPATION; Start 08/04/18 at 23:00 Acetaminophen (Tylenol Tab) 650 mg Q4H PRN PO MILD PAIN(1-3)OR ELEVATED TEMP; Start 08/04/18 at 23:30 Aspirin (Halfprin) 81 mg BID PO Last administered on 08/09/18at 09:03; Admin Dose 81 MG; Start 08/05/18 at 09:00 Bisacodyl (Dulcolax Supp) 10 mg DAILY PRN [place] CONSTIPATION; Start 08/04/18 at 23:30 Calcium Carbonate (Tums) 500 mg BID PO Last administered on 08/09/18 09:03; Admin Dose 500 MG; Start 08/05/18 at 09:00 Cholecalciferol (Vitamin D) 2,000 unit DAILY PO Last administered on 08/09/18 09:03; Admin Dose 2,000 UNIT; Start 08/05/18 at 09:00 Clonidine (Catapres) 0.1 mg TID PO Last administered on 08/09/18 09:08; Admin Dose 0.1 MG; Start 08/05/18 at 09:00 Senna/Docusate Sodium (Senokot-S) 2 tab BID PRN PO CONSTIPATION; Start 08/04/18 at 23:30 Docusate Sodium/ Ferrous Fumarate (Олег-Sequels) 1 tab BID PO Last admi nistered on 08/09/18 09:02; Admin Dose 1 TAB; Start 08/05/18 at 09:00 Pantoprazole (Protonix Tab) 40 mg DAILY@06 PO Last administered on 08/09/18 06:27; Admin Dose 40 MG; Start 08/05/18 at 06:00 IV Flush (NS 3 ml) 3 ml PER PROTOCOL IV ; Start 08/05/18 at 03:00 Hydrochlorothiazide (Hydrochlorothiazide) 12.5 mg DAILY PO Last administered on 08/09/18 09:07; Admin Dose 12.5 MG; Start 08/05/18 at 09:00 Losartan Potassium (Cozaar) 100 mg DAILY PO Last administered on 08/09/18 09:07; Admin Dose 100 MG; Start 08/05/18 at 09:00 Magnesium Oxide (Mag-Ox 400) 400 mg DAILY PO Last administered on 08/09/18 09:03; Admin Dose 400 MG; Start 08/05/18 at 09:00 Metoprolol Succinate (Toprol Xl) 50 mg BID PO Last administered on 08/09/18at 09:12; Admin Dose 50 MG; Start 08/05/18 at 09:00 Ondansetron HCl (Zofran Inj) 4 mg Q4H PRN IV NAUSEA AND/OR VOMITING; Start 08/05/18 at 03:00 Oxycodone HCl (Roxicodone) 10 mg Q4H PRN PO SEVERE PAIN LEVEL 7-10; Start 08/05/18 at 03:00 Oxycodone HCl (Roxicodone) 5 mg Q4H PRN PO MODERATE PAIN LEVEL 4-6; Start 08/05/18 at 03:00 Polyethylene Glycol (Miralax) 17 gm DAILY PRN PO CONSTIPATION; Start 08/06/18 at 10:00 Celecoxib (Celebrex) 100 mg BID PRN PO OSTEOARTHRITIS; Start 08/07/18 at 10:30 ESTHER RUSSELL MD Aug 09, 2018 13:11
[2018-08-09 14:00] VITALS: BP 97/50; PULSE 64; RESP 18
[2018-08-09 15:00] VITALS: BP 110/60; PULSE 78
--- NOTE | 2018-08-09 15:53 | NUR ---
Nursing Notes: 1553H Dr. Cleary notified about latest BP @ 1400H 97/50 and with order.
[2018-08-09 20:00] VITALS: BP 137/63; PULSE 62; RESP 18
--- NOTE | 2018-08-09 22:00 | NUR ---
U/A with C/S Urine on clean catch sent to lab for routine U/A and with C/S.
[2018-08-10 02:00] VITALS: BP 139/65; PULSE 68; RESP 18
--- NOTE | 2018-08-10 05:56 | NUR ---
End of Shift Note During the shift, No complaints made. No PRN medications given. Urine sample sent to lab for routine U/A and C/S. Bed on lowest position, side rails up 2x, bed alarm on, and call light within reach. will continue to monitor
[2018-08-10] MEDS: PANTOPRAZOLE (EC) 40 MG TAB PO SCH (06:34)
[2018-08-10 07:30] VITALS: BP 142/66; PULSE 63; RESP 18
--- NOTE | 2018-08-10 08:22 | CONS ---
Assessment/Plan Assessment/Plan Assessment/Plan (Daily) 1. Post op right hip replacement, doing well 2. HBP, controlled 3. Urinary freq with nl u.a., I asked staff to do post void bladder scan yesterday that was not done, will check today 4. Will dc diuretic for now and observe pending #3. 5. Anemia is stable Consultation Date/Type/Reason Admit Date/Time Aug 04, 2018 at 21:30 Initial Consult Date Date/Time of Note DATE: 08/10/18 TIME: 08:20 Detailed Summary Respiratory: No cough, No shortness of breath Cardiovascular: No chest pain, No lightheadedness, No orthopenea Gastrointestinal: no complaints Genitourinary: other (urinary freq q 2-3 hrs, more then preop, without dysuria or suprapubic discomfort) Exam/Review of Systems Exam Vitals Vital Signs Date Temp Pulse Resp B/P (MAP) Pulse Ox O2 O2 Flow FiO2 Time Delivery Rate 08/10/18 98.0 68 18 139/65 97 Room Air 02:00 (89) Intake and Output 08/09/18 08/09/18 08/10/18 1515:00 23:00 07:00 IntakeIntake Total 1350 ml OutputOutput Total 1050 ml 600 ml BalanceBalance 300 ml -600 ml Neck: No jvd Respiratory: clear to auscultation Cardiovascular: regular rate and rhythm Gastrointestinal: soft; No distended, No tender Extremities: No edema, No tenderness Results Result Diagram: 08/10/18 0601 08/10/18 0601 Results 24hrs Laboratory Tests Test 08/09/18 22:10 08/10/18 06:01 Urine Color STRAW Urine Clarity CLEAR Urine pH 6.0 Urine Specific [place] 1.014 Urine Ketones NEGATIVE Urine Nitrite NEGATIVE Urine Bilirubin NEGATIVE Urine Urobilinogen NEGATIVE Urine Leukocyte Esterase NEGATIVE Urine Hemoglobin NEGATIVE Urine Glucose NEGATIVE Urine Total Protein NEGATIVE White Blood Count 6.9 # Red Blood Count 2.76 L Hemoglobin 8.8 L Hematocrit 27.5 L Mean Corpuscular Volume 99.6 Mean Corpuscular Hemoglobin 31.9 Mean Corpuscular Hemoglobin Concent 32.0 Red Cell Distribution Width 13.8 Platelet Count 326 # Mean Platelet Volume 9.2 Immature Granulocytes % 0.300 Neutrophils % 63.1 Lymphocytes % 22.6 Monocytes % 7.4 Eosinophils % 5.7 Basophils % 0.9 Nucleated Red Blood Cells % 0.0 Immature Granulocytes # 0.020 Neutrophils # 4.3 Lymphocytes # 1.6 Monocytes # 0.5 Eosinophils # 0.4 Basophils # 0.1 Nucleated Red Blood Cells # 0.0 Sodium Level 140 Potassium Level 4.1 Chloride Level 109 Carbon Dioxide Level 30 Anion Gap 1 L Blood Urea Nitrogen 28 H Creatinine 0.91 Est Glomerular Filtrat Rate mL/min Glucose Level 87 Calcium Level 9.5 Phosphorus Level 4.1 Magnesium Level 2.0 Medications Medication Current Medications Docusate Sodium (Colace) 100 mg BID PO Last administered on 08/09/18 20:41; Admin Dose 100 MG; Start 08/05/18 at 09:00 Lactulose (Enulose) 20 gm DAILY PRN PO CONSTIPATION; Start 08/04/18 at 23:00 Acetaminophen (Tylenol Tab) 650 mg Q4H PRN PO MILD PAIN(1-3)OR ELEVATED TEMP; Start 08/04/18 at 23:30 Aspirin (Halfprin) 81 mg BID PO Last administered on 08/09/18 20:42; Admin Dose 81 MG; Start 08/05/18 at 09:00 Bisacodyl (Dulcolax Supp) 10 mg DAILY PRN [place] CONSTIPATION; Start 08/04/18 at 23:30 Calcium Carbonate (Tums) 500 mg BID PO Last administered on 08/09/18 20:41; Admin Dose 500 MG; Start 08/05/18 at 09:00 Cholecalciferol (Vitamin D) 2,000 unit DAILY PO Last administered on 08/09/18 09:03; Admin Dose 2,000 UNIT; Start 08/05/18 at 09:00 Clonidine (Catapres) 0.1 mg TID PO Last administered on 08/09/18 20:42; Admin Dose 0.1 MG; Start 08/05/18 at 09:00 Senna/Docusate Sodium (Senokot-S) 2 tab BID PRN PO CONSTIPATION; Start 08/04/18 at 23:30 Docusate Sodium/ Ferrous Fumarate (Олег-Sequels) 1 tab BID PO Last administered on 08/09/18 20:41; Admin Dose 1 TAB; Start 08/05/18 at 09:00 Pantoprazole (Protonix Tab) 40 mg DAILY@06 PO Last administered on 08/10/18 06:34; Admin Dose 40 MG; Start 08/05/18 at 06:00 IV Flush (NS 3 ml) 3 ml PER PROTOCOL IV ; Start 08/05/18 at 03:00 Hydrochlorothiazide (Hydrochlorothiazide) 12.5 mg DAILY PO Last administered on 08/09/18at 09:07; Admin Dose 12.5 MG; Start 08/05/18 at 09:00 Losartan Potassium (Cozaar) 100 mg DAILY PO Last administered on 08/09/18at 09:07; Admin Dose 100 MG; Start 08/05/18 at 09:00 Magnesium Oxide (Mag-Ox 400) 400 mg DAILY PO Last administered on 08/09/18at 09:03; Admin Dose 400 MG; Start 08/05/18 at 09:00 Metoprolol Succinate (Toprol Xl) 50 mg BID PO Last administered on 08/09/18at 20:42; Admin Dose 50 MG; Start 08/05/18 at 09:00 Ondansetron HCl (Zofran Inj) 4 mg Q4H PRN IV NAUSEA AND/OR VOMITING; Start 08/05/18 at 03:00 Oxycodone HCl (Roxicodone) 10 mg Q4H PRN PO SEVERE PAIN LEVEL 7-10; Start 08/05/18 at 03:00 Oxycodone HCl (Roxicodone) 5 mg Q4H PRN PO MODERATE PAIN LEVEL 4-6; Start 08/05/18 at 03:00 Polyethylene Glycol (Miralax) 17 gm DAILY PRN PO CONSTIPATION; Start 08/06/18 at 10:00 Celecoxib (Celebrex) 100 mg BID PRN PO OSTEOARTHRITIS; Start 08/07/18 at 10:30 HALINA GARCÍA MD Aug 10, 2018 08:22
--- NOTE | 2018-08-10 09:57 | NUR ---
Pt used bedside commode. Requires steadying assist. Urine output 250 cc, Bowel movement x1, moderate in amount, soft, formed, black. Post void residual 44 ml.
[2018-08-10] MEDS: CHOLECALCIFEROL 2,000 UNIT CAP PO SCH (10:06)
[2018-08-10] MEDS: FERROUS FUMARATE (SR) TAB PO SCH ×2 (10:06→20:48)
[2018-08-10] MEDS: LOSARTAN 50 MG TAB PO SCH ×2 (10:07→10:54)
[2018-08-10] MEDS: METOPROLOL (XL) 50 MG TAB PO SCH ×2 (10:07→20:51)
[2018-08-10] MEDS: ASPIRIN (EC) 81 MG TAB PO SCH ×2 (10:07→20:52)
[2018-08-10] MEDS: DOCUSATE SODIUM 100 MG CAP PO SCH ×2 (10:07→20:50)
[2018-08-10] MEDS: CALCIUM CARBONATE 500 MG CHEW TAB PO SCH ×2 (10:07→20:48)
[2018-08-10] MEDS: MAGNESIUM OXIDE 400 MG TAB PO SCH (10:08)
[2018-08-10 10:54] VITALS: BP 162/69; PULSE 65; RESP 18
--- NOTE | 2018-08-10 12:36 | PN ---
Date/Time of Note Date/Time of Note DATE: 08/10/18 TIME: 12:35 Subjective Patietn nervous about discharge Objective Vital Signs Date Temp Pulse Resp B/P (MAP) Pulse Ox O2 O2 Flow FiO2 Time Delivery Rate 08/10/18 65 18 162/69 98 Room Air 10:54 (100) 08/10/18 98.2 07:30 Intake and Output 08/09/18 08/09/18 08/10/18 1515:00 23:00 07:00 IntakeIntake Total 1350 ml OutputOutput Total 1050 ml 600 ml BalanceBalance 300 ml -600 ml Exam pulm-cta abd-soft cga 110 feet ambulation Results/Medications Result Diagram: 08/10/1860008/10/18600 Results 24 hrs Laboratory Tests Test 08/09/18 22:10 08/10/18 06:01 Urine Color STRAW Urine Clarity CLEAR Urine pH 6.0 Urine Specific [place] 1.014 Urine Ketones NEGATIVE Urine Nitrite NEGATIVE Urine Bilirubin NEGATIVE Urine Urobilinogen NEGATIVE Urine Leukocyte Esterase NEGATIVE Urine Hemoglobin NEGATIVE Urine Glucose NEGATIVE Urine Total Protein NEGATIVE White Blood Count 6.9 # Red Blood Count 2.76 L Hemoglobin 8.8 L Hematocrit 27.5 L Mean Corpuscular Volume 99.6 Mean Corpuscular Hemoglobin 31.9 Mean Corpuscular Hemoglobin Concent 32.0 Red Cell Distribution Width 13.8 Platelet Count 326 # Mean Platelet Volume 9.2 Immature Granulocytes % 0.300 Neutrophils % 63.1 Lymphocytes % 22.6 Monocytes % 7.4 Eosinophils % 5.7 Basophils % 0.9 Nucleated Red Blood Cells % 0.0 Immature Granulocytes # 0.020 Neutrophils # 4.3 Lymphocytes # 1.6 Monocytes # 0.5 Eosinophils # 0.4 Basophils # 0.1 Nucleated Red Blood Cells # 0.0 Sodium Level 140 Potassium Level 4.1 Chloride Level 109 Carbon Dioxide Level 30 Anion Gap 1 L Blood Urea Nitrogen 28 H Creatinine 0.91 Est Glomerular Filtrat Rate mL/min Glucose Level 87 Calcium Level 9.5 Phosphorus Level 4.1 Magnesium Level 2.0 Medications Current Medications Docusate Sodium (Colace) 100 mg BID PO Last administered on 08/10/18at 10:07; Admin Dose 100 MG; Start 08/05/18 at 09:00 Lactulose (Enulose) 20 gm DAILY PRN PO CONSTIPATION; Start 08/04/18 at 23:00 Acetaminophen (Tylenol Tab) 650 mg Q4H PRN PO MILD PAIN(1-3)OR ELEVATED TEMP; Start 08/04/18 at 23:30 Aspirin (Halfprin) 81 mg BID PO Last administered on 08/10/18 10:07; Admin Dose 81 MG; Start 08/05/18 at 09:00 Bisacodyl (Dulcolax Supp) 10 mg DAILY PRN [place] CONSTIPATION; Start 08/04/18 at 23:30 Calcium Carbonate (Tums) 500 mg BID PO Last administered on 08/10/18 10:07; Admin Dose 500 MG; Start 08/05/18 at 09:00 Cholecalciferol (Vitamin D) 2,000 unit DAILY PO Last administered on 08/10/18 10:06; Admin Dose 2,000 UNIT; Start 08/05/18 at 09:00 Clonidine (Catapres) 0.1 mg TID PO Last administered on 08/09/18 20:42; Admin Dose 0.1 MG; Start 08/05/18 at 09:00 Senna/Docusate Sodium (Senokot-S) 2 tab BID PRN PO CONSTIPATION; Start 08/04/18 at 23:30 Docusate Sodium/ Ferrous Fumarate (Олег-Sequels) 1 tab BID PO Last administered on 08/10/18 10:06; Admin Dose 1 TAB; Start 08/05/18 at 09:00 Pantoprazole (Protonix Tab) 40 mg DAILY@06 PO Last administered on 08/10/18 06:34; Admin Dose 40 MG; Start 08/05/18 at 06:00 IV Flush (NS 3 ml) 3 ml PER PROTOCOL IV ; Start 08/05/18 at 03:00 Losartan Potassium (Cozaar) 100 mg DAILY PO Last administered on 08/10/18 10 :54; Admin Dose 100 MG; Start 08/05/18 at 09:00 Magnesium Oxide (Mag-Ox 400) 400 mg DAILY PO Last administered on 08/10/18 10:08; Admin Dose 400 MG; Start 08/05/18 at 09:00 Metoprolol Succinate (Toprol Xl) 50 mg BID PO Last administered on 08/10/18 10:07; Admin Dose 50 MG; Start 08/05/18 at 09:00 Ondansetron HCl (Zofran Inj) 4 mg Q4H PRN IV NAUSEA AND/OR VOMITING; Start 08/05/18 at 03:00 Oxycodone HCl (Roxicodone) 10 mg Q4H PRN PO SEVERE PAIN LEVEL 7-10; Start 08/05/18 at 03:00 Oxycodone HCl (Roxicodone) 5 mg Q4H PRN PO MODERATE PAIN LEVEL 4-6; Start 08/05/18 at 03:00 Polyethylene Glycol (Miralax) 17 gm DAILY PRN PO CONSTIPATION; Start 08/06/18 at 10:00 Celecoxib (Celebrex) 100 mg BID PRN PO OSTEOARTHRITIS; Start 08/07/18 at 10:30 Assessment/Plan Additional Assessment/Plan Rehab- Other orthopedic injury with right hip severe osteoarthritis status post right total hip replacement. Continue with rehab program. Goal of modified independent for home Acute pain syndrome. Hypertension. History of left total hip replacement. History of bilateral salpingo-oophorectomy. ESTHER RUSSELL MD Aug 10, 2018 12:36
[2018-08-10 14:00] VITALS: BP 125/58; PULSE 65; RESP 20
[2018-08-10 20:05] VITALS: BP 138/61; PULSE 66; RESP 18
[2018-08-10] MEDS: ACETAMINOPHEN 325 MG TAB PO PRN (20:49)
[2018-08-11 02:00] VITALS: BP 130/61; PULSE 63; RESP 18
--- NOTE | 2018-08-11 05:27 | NUR ---
PATIENT IS ALERT AND ORIENTED. RECREATIONAL ACTIVITIES PROVIDED TO PATIENT; WATCHING TV. CALL LIGHT WITHIN REACH. NO DISTRESS NOTED.
[2018-08-11] MEDS: PANTOPRAZOLE (EC) 40 MG TAB PO SCH (06:22)
[2018-08-11 08:30] VITALS: BP 146/68; PULSE 71; RESP 18
[2018-08-11] MEDS: CHOLECALCIFEROL 2,000 UNIT CAP PO SCH (09:52)
[2018-08-11] MEDS: DOCUSATE SODIUM 100 MG CAP PO SCH ×2 (09:52→20:05)
[2018-08-11] MEDS: CALCIUM CARBONATE 500 MG CHEW TAB PO SCH ×2 (09:52→20:05)
[2018-08-11] MEDS: LOSARTAN 50 MG TAB PO SCH (09:52)
[2018-08-11] MEDS: FERROUS FUMARATE (SR) TAB PO SCH ×2 (09:52→20:05)
[2018-08-11] MEDS: ASPIRIN (EC) 81 MG TAB PO SCH ×2 (09:52→20:05)
[2018-08-11] MEDS: MAGNESIUM OXIDE 400 MG TAB PO SCH (09:58)
[2018-08-11] MEDS: METOPROLOL (XL) 50 MG TAB PO SCH ×2 (09:59→20:06)
--- NOTE | 2018-08-11 13:07 | PN ---
Date/Time of Note Date/Time of Note DATE: 08/11/18 TIME: 13:05 Subjective Patient reports some distal anterior mathews pain. She denies calf pain Objective Vital Signs Date Temp Pulse Resp B/P (MAP) Pulse Ox O2 O2 Flow FiO2 Time Delivery Rate 08/11/18 98.0 71 18 146/68 96 Room Air 08:30 (94) Intake and Output 08/10/18 08/10/18 08/11/18 1515:00 23:00 07:00 IntakeIntake Total 120 ml 1100 ml 640 ml OutputOutput Total 294 ml 200 ml BalanceBalance -174 ml 1100 ml 440 ml Exam pulm-cta abd-soft cga/sba ambulation Results/Medications Result Diagram: 08/10/18 0608/10/18 06 Medications Current Medications Docusate Sodium (Colace) 100 mg BID PO Last administered on 08/11/18at 09:52; Admin Dose 100 MG; Start 08/05/18 at 09:00 Lactulose (Enulose) 20 gm DAILY PRN PO CONSTIPATION; Start 08/04/18 at 23:00 Acetaminophen (Tylenol Tab) 650 mg Q4H PRN PO MILD PAIN(1-3)OR ELEVATED TEMP Last administered on 08/10/18at 20:49; Admin Dose 650 MG; Start 08/04/18 at 23:30 Aspirin (Halfprin) 81 mg BID PO Last administered on 08/11/18at 09:52; Admin Dose 81 MG; Start 08/05/18 at 09:00 Bisacodyl (Dulcolax Supp) 10 mg DAILY PRN [place] CONSTIPATION; Start 08/04/18 at 23:30 Calcium Carbonate (Tums) 500 mg BID PO Last administered on 08/11/18 09:52; Admin Dose 500 MG; Start 08/05/18 at 09:00 Cholecalciferol (Vitamin D) 2,000 unit DAILY PO Last administered on 08/11/18 09:52; Admin Dose 2,000 UNIT; Start 08/05/18 at 09:00 Clonidine (Catapres) 0.1 mg TID PO Last administered on 08/09/18at 20:42; Admin Dose 0.1 MG; Start 08/05/18 at 09:00 Senna/Docusate Sodium (Senokot-S) 2 tab BID PRN PO CONSTIPATION; Start 08/04/18 at 23:30 Docusate Sodium/ Ferrous Fumarate (Олег-Sequels) 1 tab BID PO Last administer ed on 08/11/18at 09:52; Admin Dose 1 TAB; Start 08/05/18 at 09:00 Pantoprazole (Protonix Tab) 40 mg DAILY@06 PO Last administered on 08/11/18at 06:22; Admin Dose 40 MG; Start 08/05/18 at 06:00 IV Flush (NS 3 ml) 3 ml PER PROTOCOL IV ; Start 08/05/18 at 03:00 Losartan Potassium (Cozaar) 100 mg DAILY PO Last administered on 08/11/18at 09:52; Admin Dose 100 MG; Start 08/05/18 at 09:00 Magnesium Oxide (Mag-Ox 400) 400 mg DAILY PO Last administered on 08/11/18at 09:58; Admin Dose 400 MG; Start 08/05/18 at 09:00 Metoprolol Succinate (Toprol Xl) 50 mg BID PO Last administered on 08/11/18at 09:59; Admin Dose 50 MG; Start 08/05/18 at 09:00 Ondansetron HCl (Zofran Inj) 4 mg Q4H PRN IV NAUSEA AND/OR VOMITING; Start 08/05/18 at 03:00 Oxycodone HCl (Roxicodone) 10 mg Q4H PRN PO SEVERE PAIN LEVEL 7-10; Start 08/05/18 at 03:00 Oxycodone HCl (Roxicodone) 5 mg Q4H PRN PO MODERATE PAIN LEVEL 4-6; Start 08/05 at 03:00 Polyethylene Glycol (Miralax) 17 gm DAILY PRN PO CONSTIPATION; Start 08/06/18 at 10:00 Celecoxib (Celebrex) 100 mg BID PRN PO OSTEOARTHRITIS; Start 08/07/18 at 10:30 Lidocaine (Lidoderm) 1 patch DAILY TD ; Start 08/11/18 at 13:00 Assessment/Plan Additional Assessment/Plan Rehab- Other orthopedic injury with right hip severe osteoarthritis status post right total hip replacement. Continue interdisciplinary rehab. Acute pain syndrome. Hypertension. History of left total hip replacement. History of bilateral salpingo-oophorectomy. ESTHER RUSSELL MD Aug 11, 2018 13:07
[2018-08-11] MEDS: LIDOCAINE 5% PATCH TD SCH (13:09)
[2018-08-11 13:14] VITALS: BP 131/68; PULSE 68; RESP 18
[2018-08-11 14:00] VITALS: BP 131/61; PULSE 72; RESP 20
--- NOTE | 2018-08-11 16:13 | NUR ---
Pt voided in the toilet. Post void residual showed 27 ml.
--- NOTE | 2018-08-11 19:22 | CONS ---
Assessment/Plan Assessment/Plan Hospital Course (Demo Recall) 1. She is post op R THR and is doing well . She has slight swelling of the R leg . No pain or calf tenderness . Recommend that she continue current medications and treatment regimen. She is doing well and participating in physical therapy. 2. HTN , well controlled . Consultation Date/Type/Reason Admit Date/Time Aug 04, 2018 at 21:30 Initial Consult Date Type of Consult medicine Date/Time of Note DATE: 08/11/18 TIME: 19:20 24 HR Interval Summary Free Text/Dictation Alma Delia is being seen in medical follow-up. She is sitting up eating lunch. She has no new complaints. Constitutional: no complaints, improved Exam/Review of Systems Exam Vitals Vital Signs Date Temp Pulse Resp B/P (MAP) Pulse Ox O2 O2 Flow FiO2 Time Delivery Rate 08/11/18 98.5 72 20 131/61 97 Room Air 14:00 (84) Intake and Output 08/10/18 08/10/18 08/11/18 1515:00 23:00 07:00 IntakeIntake Total 120 ml 1100 ml 640 ml OutputOutput Total 294 ml 200 ml BalanceBalance -174 ml 1100 ml 440 ml Constitutional: alert, oriented Respiratory: clear to auscultation, normal air movement Cardiovascular: regular rate and rhythm, edema Extremities: edema Results Result Diagram: 08/10/18 0608/10/18 06 Medications Medication Current Medications Docusate Sodium (Colace) 100 mg BID PO Last administered on 08/11/18at 09:52; A dmin Dose 100 MG; Start 08/05/18 at 09:00 Lactulose (Enulose) 20 gm DAILY PRN PO CONSTIPATION; Start 08/04/18 at 23:00 Acetaminophen (Tylenol Tab) 650 mg Q4H PRN PO MILD PAIN(1-3)OR ELEVATED TEMP [place] administered on 08/10/18at 20:49; Admin Dose 650 MG; Start 08/04/18 at 23:30 Aspirin (Halfprin) 81 mg BID PO Last administered on 08/11/18at 09:52; Admin Dose 81 MG; Start 08/05/18 at 09:00 Bisacodyl (Dulcolax Supp) 10 mg DAILY PRN [place] CONSTIPATION; Start 08/04/18 at 23:30 Calcium Carbonate (Tums) 500 mg BID PO Last administered on 08/11/18 09:52; Admin Dose 500 MG; Start 08/05/18 at 09:00 Cholecalciferol (Vitamin D) 2,000 unit DAILY PO Last administered on 08/11/18 09:52; Admin Dose 2,000 UNIT; Start 08/05/18 at 09:00 Clonidine (Catapres) 0.1 mg TID PO Last administered on 08/09/18 20:42; Admin Dose 0.1 MG; Start 08/05/18 at 09:00 Senna/Docusate Sodium (Senokot-S) 2 tab BID PRN PO CONSTIPATION; Start 08/04/18 at 23:30 Docusate Sodium/ Ferrous Fumarate (Олег-Sequels) 1 tab BID PO Last administered on 08/11/18 09:52; Admin Dose 1 TAB; Start 08/05/18 at 09:00 Pantoprazole (Protonix Tab) 40 mg DAILY@06 PO Last administered on 08/11/18 06:22; Admin Dose 40 MG; Start 08/05/18 at 06:00 IV Flush (NS 3 ml) 3 ml PER PROTOCOL IV ; Start 08/05/18 at 03:00 Losartan Potassium (Cozaar) 100 mg DAILY PO Last administered on 08/11/18 09:52; Admin Dose 100 MG; Start 08/05/18 at 09:00 Magnesium Oxide (Mag-Ox 400) 400 mg DAILY PO Last administered on 08/11/18 09:58; Admin Dose 400 MG; Start 08/05/18 at 09:00 Metoprolol Succinate (Toprol Xl) 50 mg BID PO Last administered on 08/11/18 09:59; Admin Dose 50 MG; Start 08/05/18 at 09:00 Ondansetron HCl (Zofran Inj) 4 mg Q4H PRN IV NAUSEA AND/OR VOMITING; Start 08/05/18 at 03:00 Oxycodone HCl (Roxicodone) 10 mg Q4H PRN PO SEVERE PAIN LEVEL 7-10; Start 08/05/18 at 03:00 Oxycodone HCl (Roxicodone) 5 mg Q4H PRN PO MODERATE PAIN LEVEL 4-6; Start 08/05/18 at 03:00 Polyethylene Glycol (Miralax) 17 gm DAILY PRN PO CONSTIPATION; Start 08/06/18 at 10:00 Celecoxib (Celebrex) 100 mg BID PRN PO OSTEOARTHRITIS; Start 08/07/18 at 10:30 Lidocaine (Lidoderm) 1 patch DAILY TD Last administered on 08/11/18at 13:09; Admin Dose 1 PATCH; Start 08/11/18 at 13:00 DEMETRIO WRIGHT MD Aug 11, 2018 19:22
[2018-08-11 20:00] VITALS: BP 135/65; RESP 18
[2018-08-11] MEDS: ACETAMINOPHEN 325 MG TAB PO PRN (20:05)
[2018-08-12 02:00] VITALS: BP 132/69; PULSE 72; RESP 18
--- NOTE | 2018-08-12 05:46 | NUR ---
Patient slept well during the night. Patient is A/O x4. Patient's condition stable. Tylenol (as per patient request for) PO given for right hip discomfort, 5/10, with good relief. Voided without difficulty, up to B[facility] with assistance. Needs met. Hourly rounding done. Call light and bedside table within reach. Instructed to call for assistance. Has bed alarm on for safety precaution
[2018-08-12] MEDS: PANTOPRAZOLE (EC) 40 MG TAB PO SCH (06:37)
[2018-08-12 07:00] VITALS: BP 175/84; PULSE 70; RESP 18
[2018-08-12 08:20] VITALS: BP 164/72; PULSE 86
[2018-08-12] MEDS: LOSARTAN 50 MG TAB PO SCH (08:20)
[2018-08-12] MEDS: METOPROLOL (XL) 50 MG TAB PO SCH ×2 (08:20→20:33)
[2018-08-12] MEDS: LIDOCAINE 5% PATCH TD SCH (09:00)
[2018-08-12] MEDS: CHOLECALCIFEROL 2,000 UNIT CAP PO SCH (09:25)
[2018-08-12] MEDS: FERROUS FUMARATE (SR) TAB PO SCH ×2 (09:25→20:33)
[2018-08-12] MEDS: ASPIRIN (EC) 81 MG TAB PO SCH ×2 (09:25→20:32)
[2018-08-12] MEDS: MAGNESIUM OXIDE 400 MG TAB PO SCH (09:25)
[2018-08-12] MEDS: CALCIUM CARBONATE 500 MG CHEW TAB PO SCH ×2 (09:25→20:33)
[2018-08-12] MEDS: DOCUSATE SODIUM 100 MG CAP PO SCH ×2 (09:29→20:32)
[2018-08-12 10:00] VITALS: BP 140/80; PULSE 80
--- NOTE | 2018-08-12 11:56 | PN ---
Date/Time of Note Date/Time of Note DATE: 08/12/18 TIME: 11:56 Subjective Comfortable Objective Vital Signs Date Temp Pulse Resp B/P (MAP) Pulse Ox O2 O2 Flow FiO2 Time Delivery Rate 08/12/18 86 164/72 08:20 (102) 08/12/18 98.5 18 96 Room Air 07:00 Intake and Output 08/11/18 08/11/18 08/12/18 1515:00 23:00 07:00 IntakeIntake Total 1400 ml 1000 ml BalanceBalance 1400 ml 1000 ml Exam pulm-cta sba ambulation Results/Medications Result Diagram: 08/10/18 0608/10/18 06 Medications Current Medications Docusate Sodium (Colace) 100 mg BID PO Last administered on 08/12/18at 09:29; Admin Dose 100 MG; Start 08/05/18 at 09:00 Lactulose (Enulose) 20 gm DAILY PRN PO CONSTIPATION; Start 08/04/18 at 23:00 Acetaminophen (Tylenol Tab) 650 mg Q4H PRN PO MILD PAIN(1-3)OR ELEVATED TEMP L ast administered on 08/11/18at 20:05; Admin Dose 650 MG; Start 08/04/18 at 23:30 Aspirin (Halfprin) 81 mg BID PO Last administered on 08/12/18 09:25; Admin Dose 81 MG; Start 08/05/18 at 09:00 Bisacodyl (Dulcolax Supp) 10 mg DAILY PRN [place] CONSTIPATION; Start 08/04/18 at 23:30 Calcium Carbonate (Tums) 500 mg BID PO Last administered on 08/12/18 09:25; Admin Dose 500 MG; Start 08/05/18 at 09:00 Cholecalciferol (Vitamin D) 2,000 unit DAILY PO Last administered on 08/12/18 09:25; Admin Dose 2,000 UNIT; Start 08/05/18 at 09:00 Clonidine (Catapres) 0.1 mg TID PO Last administered on 08/12/18 08:20; Admin Dose 0.1 MG; Start 08/05/18 at 09:00 Senna/Docusate Sodium (Senokot-S) 2 tab BID PRN PO CONSTIPATION; Start 08/04/18 at 23:30 Docusate Sodium/ Ferrous Fumarate (Олег-Sequels) 1 tab BID PO Last administered on 08/12/18at 09:25; Admin Dose 1 TAB; Start 08/05/18 at 09:00 Pantoprazole (Protonix Tab) 40 mg DAILY@06 PO Last administered on 08/12/18at 06:37; Admin Dose 40 MG; Start 08/05/18 at 06:00 IV Flush (NS 3 ml) 3 ml PER PROTOCOL IV ; Start 08/05/18 at 03:00 Losartan Potassium (Cozaar) 100 mg DAILY PO Last administered on 08/12/18at 08:20; Admin Dose 100 MG; Start 08/05/18 at 09:00 Magnesium Oxide (Mag-Ox 400) 400 mg DAILY PO Last administered on 08/12/18at 09:25; Admin Dose 400 MG; Start 08/05/18 at 09:00 Metoprolol Succinate (Toprol Xl) 50 mg BID PO Last administered on 08/12/18at 08: 20; Admin Dose 50 MG; Start 08/05/18 at 09:00 Ondansetron HCl (Zofran Inj) 4 mg Q4H PRN IV NAUSEA AND/OR VOMITING; Start 08/05/18 at 03:00 Oxycodone HCl (Roxicodone) 10 mg Q4H PRN PO SEVERE PAIN LEVEL 7-10; Start 08/05/18 at 03:00 Oxycodone HCl (Roxicodone) 5 mg Q4H PRN PO MODERATE PAIN LEVEL 4-6; Start 08/05/18 at 03:00 Polyethylene Glycol (Miralax) 17 gm DAILY PRN PO CONSTIPATION; Start 08/06/18 at 10:00 Celecoxib (Celebrex) 100 mg BID PRN PO OSTEOARTHRITIS; Start 08/07/18 at 10:30 Lidocaine (Lidoderm) 1 patch DAILY TD Last administered on 08/11/18at 13:09; Admin Dose 1 PATCH; Start 08/11/18 at 13:00 Assessment/Plan Additional Assessment/Plan Rehab- Other orthopedic injury with right hip severe osteoarthritis status post right total hip replacement. Continue rehab activities. Acute pain syndrome. Hypertension. History of left total hip replacement. History of bilateral salpingo-oophorectomy. ESTHER RUSSELL MD Aug 12, 2018 11:56
[2018-08-12 14:00] VITALS: BP 136/62; PULSE 65; RESP 18
--- NOTE | 2018-08-12 18:43 | CONS ---
Assessment/Plan Assessment/Plan Hospital Course (Demo Recall) 1. She is post op R THR and is doing well . She has slight swelling of both legs but more on R leg . I did a venous doppler which was negative for DVT . continue current medication and PT . 2. HTN , has been elevated . Will conmtinue to monitor . . Consultation Date/Type/Reason Admit Date/Time Aug 04, 2018 at 21:30 Initial Consult Date Type of Consult medicine Date/Time of Note DATE: 08/12/18 TIME: 18:39 24 HR Interval Summary Free Text/Dictation Alma Delia is up doing PT . She c/o increased swelling in her R leg . She denies pain in the R calf . Exam/Review of Systems Exam Vitals Vital Signs Date Temp Pulse Resp B/P (MAP) Pulse Ox O2 O2 Flow FiO2 Time Delivery Rate 08/12/18 98.1 65 18 136/62 97 Room Air 14:00 (86) Intake and Output 08/11/18 08/11/18 08/12/18 1515:00 23:00 07:00 IntakeIntake Total 1400 ml 1000 ml BalanceBalance 1400 ml 1000 ml Constitutional: alert, oriented Respiratory: clear to auscultation, normal air movement Cardiovascular: regular rate and rhythm, edema Gastrointestinal: soft, non-tender Extremities: edema Results Result Diagram: 08/10/1860008/10/18600 Medications Medication Current Medications Docusate Sodium (Colace) 100 mg BID PO Last administered on 08/12/18at 09:29; Admin Dose 100 MG; Start 08/05/18 at 09:00 Lactulose (Enulose) 20 gm DAILY PRN PO CONSTIPATION; Start 08/04/18 at 23:00 Acetaminophen (Tylenol Tab) 650 mg Q4H PRN PO MILD PAIN(1-3)OR ELEVATED TEMP Last administered on 08/11/18at 20:05; Admin Dose 650 MG; Start 08/04/18 at 23:30 Aspirin (Halfprin) 81 mg BID PO Last administered on 08/12/18at 09:25; Admin Dose 81 MG; Start 08/05/18 at 09:00 Bisacodyl (Dulcolax Supp) 10 mg DAILY PRN [place] CONSTIPATION; Start 08/04/18 at 23:30 Calcium Carbonate (Tums) 500 mg BID PO Last administered on 08/12/18 09:25; Admin Dose 500 MG; Start 08/05/18 at 09:00 Cholecalciferol (Vitamin D) 2,000 unit DAILY PO Last administered on 08/12/18 09:25; Admin Dose 2,000 UNIT; Start 08/05/18 at 09:00 Clonidine (Catapres) 0.1 mg TID PO Last administered on 08/12/18 13:49; Admin Dose 0.1 MG; Start 08/05/18 at 09:00 Senna/Docusate Sodium (Senokot-S) 2 tab BID PRN PO CONSTIPATION; Start 08/04/18 at 23:30 Docusate Sodium/ Ferrous Fumarate (Олег-Sequels) 1 tab BID PO Last administered on 08/12/18 09:25; Admin Dose 1 TAB; Start 08/05/18 at 09:00 Pantoprazole (Protonix Tab) 40 mg DAILY@06 PO Last administered on 08/12/18 06:37; Admin Dose 40 MG; Start 08/05/18 at 06:00 IV Flush (NS 3 ml) 3 ml PER PROTOCOL IV ; Start 08/05/18 at 03:00 Losartan Potassium (Cozaar) 100 mg DAILY PO Last administered on 08/12/18 08:20; Admin Dose 100 MG; Start 08/05/18 at 09:00 Magnesium Oxide (Mag-Ox 400) 400 mg DAILY PO Last administered on 08/12/18 09 :25; Admin Dose 400 MG; Start 08/05/18 at 09:00 Metoprolol Succinate (Toprol Xl) 50 mg BID PO Last administered on 08/12/18 08:20; Admin Dose 50 MG; Start 08/05/18 at 09:00 Ondansetron HCl (Zofran Inj) 4 mg Q4H PRN IV NAUSEA AND/OR VOMITING; Start 08/05/18 at 03:00 Oxycodone HCl (Roxicodone) 10 mg Q4H PRN PO SEVERE PAIN LEVEL 7-10; Start 08/05/18 at 03:00 Oxycodone HCl (Roxicodone) 5 mg Q4H PRN PO MODERATE PAIN LEVEL 4-6; Start 08/05/18 at 03:00 Polyethylene Glycol (Miralax) 17 gm DAILY PRN PO CONSTIPATION; Start 08/06/18 at 10:00 Celecoxib (Celebrex) 100 mg BID PRN PO OSTEOARTHRITIS; Start 08/07/18 at 10:30 Lidocaine (Lidoderm) 1 patch DAILY TD Last administered on 08/11/18at 13:09; Admi n Dose 1 PATCH; Start 08/11/18 at 13:00 DEMETRIO WRIGHT MD Aug 12, 2018 18:43
[2018-08-12 19:59] VITALS: BP 126/60; PULSE 67; RESP 18
[2018-08-12] MEDS: ACETAMINOPHEN 325 MG TAB PO PRN (22:11)
[2018-08-13 02:00] VITALS: BP 132/68; PULSE 72; RESP 18
--- NOTE | 2018-08-13 06:09 | NUR ---
Patient slept well during the night. Patient is A/O x4. Patient's condition stable. Tylenol PO given for right hip discomfort, 09/12, with good relief. Voided without difficulty. Needs met. Hourly rounding done. Call light and bedside table within reach. Instructed to call for assistance. Has bed alarm on for safety precaution
[2018-08-13] MEDS: PANTOPRAZOLE (EC) 40 MG TAB PO SCH (06:48)
[2018-08-13 07:30] VITALS: BP 169/72; PULSE 18; PULSE 64; RESP 18
[2018-08-13] MEDS: ASPIRIN (EC) 81 MG TAB PO SCH ×2 (08:26→21:18)
[2018-08-13] MEDS: DOCUSATE SODIUM 100 MG CAP PO SCH ×2 (08:26→21:18)
[2018-08-13] MEDS: MAGNESIUM OXIDE 400 MG TAB PO SCH (08:26)
[2018-08-13] MEDS: CHOLECALCIFEROL 2,000 UNIT CAP PO SCH (08:26)
[2018-08-13] MEDS: LOSARTAN 50 MG TAB PO SCH (08:26)
[2018-08-13] MEDS: CALCIUM CARBONATE 500 MG CHEW TAB PO SCH ×2 (08:27→21:24)
[2018-08-13] MEDS: METOPROLOL (XL) 50 MG TAB PO SCH ×2 (08:27→21:19)
[2018-08-13] MEDS: FERROUS FUMARATE (SR) TAB PO SCH ×2 (08:27→21:18)
[2018-08-13] MEDS: LIDOCAINE 5% PATCH TD SCH (09:00)
--- NOTE | 2018-08-13 13:37 | PN ---
Date/Time of Note Date/Time of Note DATE: 08/13/18 TIME: 13:37 Subjective Motivated Objective Vital Signs Date Temp Pulse Resp B/P (MAP) Pulse Ox O2 O2 Flow FiO2 Time Delivery Rate 08/13/18 97.8 18 18 169/72 98 Room Air 07:30 (104) Intake and Output 08/12/18 08/12/18 08/13/18 1515:00 23:00 07:00 IntakeIntake Total 1550 ml OutputOutput Total 600 ml BalanceBalance 950 ml Exam pulm-cta abd-soft sba transfer and ambulation Results/Medications Result Diagram: 08/10/1860008/10/18 06 Medications Current Medications Docusate Sodium (Colace) 100 mg BID PO Last administered on 08/13/18 08:26; Admin Dose 100 MG; Start 08/05/18 at 09:00 Lactulose (Enulose) 20 gm DAILY PRN PO CONSTIPATION; Start 08/04/18 at 23:00 Acetaminophen (Tylenol Tab) 650 mg Q4H PRN PO MILD PAIN(1-3)OR ELEVATED TEMP Last administered on 08/12/18at 22:11; Admin Dose 650 MG; Start 08/04/18 at 23:30 Aspirin (Halfprin) 81 mg BID PO Last administered on 08/13/18 08:26; Admin Dose 81 MG; Start 08/05/18 at 09:00 Bisacodyl (Dulcolax Supp) 10 mg DAILY PRN [place] CONSTIPATION; Start 08/04/18 at 23:30 Calcium Carbonate (Tums) 500 mg BID PO Last administered on 08/13/18 08:27; Admin Dose 500 MG; Start 08/05/18 at 09:00 Cholecalciferol (Vitamin D) 2,000 unit DAILY PO Last administered on 08/13/18 08:26; Admin Dose 2,000 UNIT; Start 08/05/18 at 09:00 Clonidine (Catapres) 0.1 mg TID PO Last administered on 08/13/18 08:26; Admin Dose 0.1 MG; Start 08/05/18 at 09:00 Senna/Docusate Sodium (Senokot-S) 2 tab BID PRN PO CONSTIPATION; Start 08/04/18 at 23:30 Docusate Sodium/ Ferrous Fumarate (Олег-Sequels) 1 tab BID PO Last administered on 08/13/18 08:27; Admin Dose 1 TAB; Start 08/05/18 at 09:00 Pantoprazole (Protonix Tab) 40 mg DAILY@06 PO Last administered on 08/13/18at 06:48; Admin Dose 40 MG; Start 08/05/18 at 06:00 IV Flush (NS 3 ml) 3 ml PER PROTOCOL IV ; Start 08/05/18 at 03:00 Losartan Potassium (Cozaar) 100 mg DAILY PO Last administered on 08/13/18 08:26; Admin Dose 100 MG; Start 08/05/18 at 09:00 Magnesium Oxide (Mag-Ox 400) 400 mg DAILY PO Last administered on 08/13/18 08:26; Admin Dose 400 MG; Start 08/05/18 at 09:00 Metoprolol Succinate (Toprol Xl) 50 mg BID PO Last administered on 08/13/18 08:27; Admin Dose 50 MG; Start 08/05/18 at 09:00 Polyethylene Glycol (Miralax) 17 gm DAILY PRN PO CONSTIPATION; Start 08/06/18 at 10:00 Celecoxib (Celebrex) 100 mg BID PRN PO OSTEOARTHRITIS; Start 08/07/18 at 10:30 Assessment/Plan Additional Assessment/Plan Rehab- Other orthopedic injury with right hip severe osteoarthritis status post right total hip replacement. Continue rehab therapies. Acute pain syndrome. Hypertension. History of left total hip replacement. History of bilateral salpingo-oophorectomy. ESTHER RUSSELL MD Aug 13, 2018 13:37
[2018-08-13 14:00] VITALS: BP 111/53; PULSE 66; RESP 18
--- NOTE | 2018-08-13 14:24 | CONS ---
Assessment/Plan Assessment/Plan Hospital Course (Demo Recall) 1. She is post op R THR and is doing well . She has slight swelling of both legs but more on R leg . I did a venous doppler which was negative for DVT . continue current medication and PT . 2. HTN , has been elevated . I will stop clonidine for now. I will reorder hydrochlorothiazide 25 mg a day, which the patient was on prior to admission. I will check labs in 3 days to monitor her electrolytes. Consultation Date/Type/Reason Admit Date/Time Aug 04, 2018 at 21:30 Initial Consult Date Type of Consult medicine Date/Time of Note DATE: 08/13/18 TIME: 14:22 24 HR Interval Summary Free Text/Dictation Alma Delia is being seen in medical follow-up. She is awake and alert. Her blood pressure has been labile high at times and then lower after she gets treated wit h clonidine. Constitutional: no complaints, improved Exam/Review of Systems Exam Vitals Vital Signs Date Temp Pulse Resp B/P (MAP) Pulse Ox O2 O2 Flow FiO2 Time Delivery Rate 08/13/18 98.0 66 18 111/53 100 Room Air 14:00 (72) Intake and Output 08/12/18 08/12/18 08/13/18 1515:00 23:00 07:00 IntakeIntake Total 1550 ml OutputOutput Total 600 ml BalanceBalance 950 ml Constitutional: alert, oriented, well developed Respiratory: clear to auscultation, normal air movement Cardiovascular: regular rate and rhythm Gastrointestinal: soft, non-tender Extremities: edema Results Result Diagram: 08/10/18 0608/10/18 06 Medications Medication Current Medications Docusate Sodium (Colace) 100 mg BID PO Last administered on 08/13/18at 08:26; Admin Dose 100 MG; Start 08/05/18 at 09:00 Lactulose (Enulose) 20 gm DAILY PRN PO CONSTIPATION; Start 08/04/18 at 23:00 Acetaminophen (Tylenol Tab) 650 mg Q4H PRN PO MILD PAIN(1-3)OR ELEVATED TEMP Last administered on 08/12/18at 22:11; Admin Dose 650 MG; Start 08/04/18 at 23:30 Aspirin (Halfprin) 81 mg BID PO Last administered on 08/13/18 08:26; Admin Dose 81 MG; Start 08/05/18 at 09:00 Bisacodyl (Dulcolax Supp) 10 mg DAILY PRN [place] CONSTIPATION; Start 08/04/18 at 23:30 Calcium Carbonate (Tums) 500 mg BID PO Last administered on 08/13/18 08:27; Admin Dose 500 MG; Start 08/05/18 at 09:00 Cholecalciferol (Vitamin D) 2,000 unit DAILY PO Last administered on 08/13/18 08:26; Admin Dose 2,000 UNIT; Start 08/05/18 at 09:00 Senna/Docusate Sodium (Senokot-S) 2 tab BID PRN PO CONSTIPATION; Start 08/04/18 at 23:30 Docusate Sodium/ Ferrous Fumarate (Олег-Sequels) 1 tab BID PO Last administered on 08/13/18 08:27; Admin Dose 1 TAB; Start 08/05/18 at 09:00 Pantoprazole (Protonix Tab) 40 mg DAILY@06 PO Last administered on 08/13/18 06:48; Admin Dose 40 MG; Start 08/05/18 at 06:00 IV Flush (NS 3 ml) 3 ml PER PROTOCOL IV ; Start 08/05/18 at 03:00 Losartan Potassium (Cozaar) 100 mg DAILY PO Last administered on 08/13/18 08:26; Admin Dose 100 MG; Start 08/05/18 at 09:00 Magnesium Oxide (Mag-Ox 400) 400 mg DAILY PO Last administered on 08/13/18 08:26; Admin Dose 400 MG; Start 08/05/18 at 09:00 Metoprolol Succinate (Toprol Xl) 50 mg BID PO Last administered on 08/13/18 08:27; Admin Dose 50 MG; Start 08/05/18 at 09:00 Polyethylene Glycol (Miralax) 17 gm DAILY PRN PO CONSTIPATION; Start 08/06/18 at 10:00 Celecoxib (Celebrex) 100 mg BID PRN PO OSTEOARTHRITIS; Start 08/07/18 at 10:30 Hydrochlorothiazide (Hydrochlorothiazide) 25 mg DAILY PO ; Start 08/14/18 at 09:00 DEMETRIO WRIGHT MD Aug 13, 2018 14:24
--- NOTE | 2018-08-13 18:20 | NUR ---
Pateint is resting in bed with no complaint of pain. She has had some edema to BLE, I spoke to Dr. Tompkins and he restarted her HTC. Will monitor. Call light in reach, bed alarm on.
[2018-08-13 19:44] VITALS: BP 145/65; RESP 18
[2018-08-13 21:19] VITALS: PULSE 67
[2018-08-13] MEDS: ACETAMINOPHEN 325 MG TAB PO PRN (21:33)
[2018-08-14 01:55] VITALS: BP 132/62; PULSE 69; RESP 18
[2018-08-14] MEDS: PANTOPRAZOLE (EC) 40 MG TAB PO SCH (06:41)
[2018-08-14 07:00] VITALS: BP 165/72; PULSE 60; RESP 17
[2018-08-14] MEDS: CALCIUM CARBONATE 500 MG CHEW TAB PO SCH ×2 (08:37→20:45)
[2018-08-14] MEDS: ASPIRIN (EC) 81 MG TAB PO SCH ×2 (08:37→20:45)
[2018-08-14] MEDS: DOCUSATE SODIUM 100 MG CAP PO SCH ×2 (08:37→20:45)
[2018-08-14] MEDS: FERROUS FUMARATE (SR) TAB PO SCH ×2 (08:38→20:45)
[2018-08-14] MEDS: MAGNESIUM OXIDE 400 MG TAB PO SCH (08:38)
[2018-08-14] MEDS: CHOLECALCIFEROL 2,000 UNIT CAP PO SCH (08:38)
[2018-08-14] MEDS: LOSARTAN 50 MG TAB PO SCH (08:41)
[2018-08-14 08:42] VITALS: BP 123/55; PULSE 78
[2018-08-14] MEDS: METOPROLOL (XL) 50 MG TAB PO SCH ×2 (08:42→20:46)
[2018-08-14] MEDS: HYDROCHLOROTHIAZIDE 25 MG TAB PO SCH (08:42)
--- NOTE | 2018-08-14 08:55 | PN ---
Date/Time of Note Date/Time of Note DATE: 08/14/18 TIME: 08:54 Subjective Doing well Objective Vital Signs Date Temp Pulse Resp B/P (MAP) Pulse Ox O2 O2 Flow FiO2 Time Delivery Rate 08/14/18 98.3 60 17 165/72 98 Room Air 07:00 (103) Intake and Output 08/13/18 08/13/18 08/14/18 1515:00 23:00 07:00 IntakeIntake Total 850 ml 1120 ml 1250 ml BalanceBalance 850 ml 1120 ml 1250 ml Exam sba ambulation pulm-cta Results/Medications Result Diagram: 08/10/1860008/10/18 06 Medications Current Medications Docusate Sodium (Colace) 100 mg BID PO Last administered on 08/14/18 08:37; Admin Dose 100 MG; Start 08/05/18 at 09:00 Lactulose (Enulose) 20 gm DAILY PRN PO CONSTIPATION; Start 08/04/18 at 23:00 Acetaminophen (Tylenol Tab) 650 mg Q4H PRN PO MILD PAIN(1-3)OR ELEVATED TEMP Last administered on 08/13/18at 21:33; Admin Dose 650 MG; Start 08/04/18 at 23:30 Aspirin (Halfprin) 81 mg BID PO Last administered on 08/14/18 08:37; Admin Dose 81 MG; Start 08/05/18 at 09:00 Bisacodyl (Dulcolax Supp) 10 mg DAILY PRN [place] CONSTIPATION; Start 08/04/18 at 23:30 Calcium Carbonate (Tums) 500 mg BID PO Last administered on 08/14/18 08:37; Admin Dose 500 MG; Start 08/05/18 at 09:00 Cholecalciferol (Vitamin D) 2,000 unit DAILY PO Last administered on 08/14/18 08:38; Admin Dose 2,000 UNIT; Start 08/05/18 at 09:00 Senna/Docusate Sodium (Senokot-S) 2 tab BID PRN PO CONSTIPATION; Start 08/04/18 at 23:30 Docusate Sodium/ Ferrous Fumarate (Олег-Sequels) 1 tab BID PO Last administered on 08/14/18 08:38; Admin Dose 1 TAB; Start 08/05/18 at 09:00 Pantoprazole (Protonix Tab) 40 mg DAILY@06 PO Last administered on 08/14/18at 06:41; Admin Dose 40 MG; Start 08/05/18 at 06:00 IV Flush (NS 3 ml) 3 ml PER PROTOCOL IV ; Start 08/05/18 at 03:00 Losartan Potassium (Cozaar) 100 mg DAILY PO Last administered on 08/14/18at 08:41; Admin Dose 100 MG; Start 08/05/18 at 09:00 Magnesium Oxide (Mag-Ox 400) 400 mg DAILY PO Last administered on 08/14/18at 08:38; Admin Dose 400 MG; Start 08/05/18 at 09:00 Metoprolol Succinate (Toprol Xl) 50 mg BID PO Last administered on 08/14/18at 08:42; Admin Dose 50 MG; Start 08/05/18 at 09:00 Polyethylene Glycol (Miralax) 17 gm DAILY PRN PO CONSTIPATION; Start 08/06/18 at 10:00 Celecoxib (Celebrex) 100 mg BID PRN PO OSTEOARTHRITIS; Start 08/07/18 at 10:30 Hydrochlorothiazide (Hydrochlorothiazide) 25 mg DAILY PO Last administered on 08/14/18at 08:42; Admin Dose 25 MG; Start 08/14/18 at 09:00 Assessment/Plan Additional Assessment/Plan Rehab- Other orthopedic injury with right hip severe osteoarthritis status post right total hip replacement. Continue rehab program Acute pain syndrome- under control Hypertension. History of left total hip replacement. History of bilateral salpingo-oophorectomy. ESTHER RUSSELL MD Aug 14, 2018 08:55
--- NOTE | 2018-08-14 13:36 | CONS ---
Assessment/Plan Assessment/Plan Assessment/Plan (Daily) 1. She is post op R THR and is doing well . She has slight swelling of both legs but more on R leg . venous doppler which was negative for DVT . continue current medication, leg elevation and PT . 2. HTN , has been elevated .clonidine discontinued and hydrochlorothiazide 25 mg a day started, which the patient was on prior to admission. BP better controlled now Consultation Date/Type/Reason Admit Date/Time Aug 04, 2018 at 21:30 Initial Consult Date Type of Consult Internal Medicine Reason for Consultation Medical Date/Time of Note DATE: 08/14/18 TIME: 13:33 24 HR Interval Summary Free Text/Dictation Pt seen and evalutated this AM. She is doing well. Blood pressure controlled and stable. Edema in leg is improving Exam/Review of Systems Exam Vitals Vital Signs Date Temp Pulse Resp B/P (MAP) Pulse Ox O2 O2 Flow FiO2 Time Delivery Rate 08/14/18 98.3 60 17 165/72 98 Room Air 07:00 (103) Intake and Output 08/13/18 08/13/18 08/14/18 1414:59 22:59 06:59 IntakeIntake Total 850 ml 1120 ml 1250 ml BalanceBalance 850 ml 1120 ml 1250 ml Results Result Diagram: 08/10/18 0601 08/10/18 0601 Medications Medication Current Medications Docusate Sodium (Colace) 100 mg BID PO Last administered on 08/14/18at 08:37; Admin Dose 100 MG; Start 08/05/18 at 09:00 Lactulose (Enulose) 20 gm DAILY PRN PO CONSTIPATION; Start 08/04/18 at 23:00 Acetaminophen (Tylenol Tab) 650 mg Q4H PRN PO MILD PAIN(1-3)OR ELEVATED TEMP Last administered on 08/13/18at 21:33; Admin Dose 650 MG; Start 08/04/18 at 23:30 Aspirin (Halfprin) 81 mg BID PO Last administered on 08/14/18at 08:37; Admin Dose 81 MG; Start 08/05/18 at 09:00 Bisacodyl (Dulcolax Supp) 10 mg DAILY PRN [place] CONSTIPATION; Start 08/04/18 at 2 3:30 Calcium Carbonate (Tums) 500 mg BID PO Last administered on 08/14/18at 08:37; Admin Dose 500 MG; Start 08/05/18 at 09:00 Cholecalciferol (Vitamin D) 2,000 unit DAILY PO Last administered on 08/14/18 08:38; Admin Dose 2,000 UNIT; Start 08/05/18 at 09:00 Senna/Docusate Sodium (Senokot-S) 2 tab BID PRN PO CONSTIPATION; Start 08/04/18 at 23:30 Docusate Sodium/ Ferrous Fumarate (Олег-Sequels) 1 tab BID PO Last administered on 08/14/18 08:38; Admin Dose 1 TAB; Start 08/05/18 at 09:00 Pantoprazole (Protonix Tab) 40 mg DAILY@06 PO Last administered on 08/14/18 06:41; Admin Dose 40 MG; Start 08/05/18 at 06:00 IV Flush (NS 3 ml) 3 ml PER PROTOCOL IV ; Start 08/05/18 at 03:00 Losartan Potassium (Cozaar) 100 mg DAILY PO Last administered on 08/14/18 08:41; Admin Dose 100 MG; Start 08/05/18 at 09:00 Magnesium Oxide (Mag-Ox 400) 400 mg DAILY PO Last administered on 08/14/18 08:38; Admin Dose 400 MG; Start 08/05/18 at 09:00 Metoprolol Succinate (Toprol Xl) 50 mg BID PO Last administered on 08/14/18 08:42; Admin Dose 50 MG; Start 08/05/18 at 09:00 Polyethylene Glycol (Miralax) 17 gm DAILY PRN PO CONSTIPATION; Start 08/06/18 at 10:00 Celecoxib (Celebrex) 100 mg BID PRN PO OSTEOARTHRITIS; Start 08/07/18 at 10:30 Hydrochlorothiazide (Hydrochlorothiazide) 25 mg DAILY PO Last administered on 08/14/18 08:42; Admin Dose 25 MG; Start 08/14/18 at 09:00 MADDIE HERNANDEZ Aug 14, 2018 13:36
[2018-08-14 14:00] VITALS: BP 125/65; PULSE 68; RESP 18
[2018-08-14 20:00] VITALS: BP 148/65; PULSE 68; RESP 18
--- NOTE | 2018-08-14 22:17 | NUR ---
Requested to let her sleep in during the night and not wake her up for VS and medications too early. Verbalized she wanted to take her 6AM meds with the rest of the pills later in the morning.
[2018-08-15 02:00] VITALS: BP 136/67; PULSE 77; RESP 18
--- NOTE | 2018-08-15 02:11 | NUR ---
[facility] RN Weekly Summary Dates From: 08/09/18 to 08/15/18 Patient Name: MÓNICA VASQUEZ MR#: [id number] Height: 5 ft 5 in Weight: 175 lbs 4.28 oz 79.500 kg Reason for Visit: TOTAL RIGHT HIP ARTHROPLASTY Precautions: Fall, Standard Date: 08/15/18 Time: 0211 User: LAZARUS STARRO Short-term Goals: 1. Will be free from falls/injuries 2. Will have good pain control 3. Will not have skin breakdown Patient's progress: Fair Short-term goals not met and reason/barriers: Ongoing Bladder - level of function and accidents: 5, no accidents Bowel - level of function and accidents: 6, no accidents Skin: Non intact Status: Right hip incision Treatment: Dermabond Changes: None Pain: 0 Level: 0/10 Location: Management: Changes: Functional levels: Self Care: 5 Transfers: 4-5 Locomotion: 5 Assistance requirements: Communication: 7 Social Cognition: 7 Safety awareness: Yes. Bed alarm on, frequent checks, siderails up x2, call light within reach. Interdisciplinary interactions: MD, RN, PT, OT, SW Patient education: Yes. Education re: fall precautions, medication compliance. Discharge needs: Plan to d/c on 08/18/18. Comorbid conditions: 1. Acute pain syndrome. 2. Hypertension. 3. History of left total hip replacement. 4. History of bilateral salpingo-oophorectomy. 5. Impairments in self-care and mobility. Plan of Care continuation: Yes, continue current POC.
[2018-08-15] MEDS: ACETAMINOPHEN 325 MG TAB PO PRN ×2 (02:33→21:14)
--- NOTE | 2018-08-15 05:49 | NUR ---
Pt asleep at this time. No s/s of distress. Was able to go back to sleep after pain interventions. Due meds given. Needs attended to. Supervised/assisted during ambulation. Safety precautions in place. Kept clean and comfortable. Encouraged to call for help whenever needed. Frequent checks done. Will endorse accordingly.
[2018-08-15] MEDS: PANTOPRAZOLE (EC) 40 MG TAB PO SCH (06:22)
[2018-08-15 08:00] VITALS: BP 146/65; PULSE 76; RESP 20
[2018-08-15] MEDS: METOPROLOL (XL) 50 MG TAB PO SCH ×2 (09:11→21:19)
[2018-08-15] MEDS: DOCUSATE SODIUM 100 MG CAP PO SCH ×2 (09:11→21:14)
[2018-08-15] MEDS: CALCIUM CARBONATE 500 MG CHEW TAB PO SCH ×2 (09:11→21:15)
[2018-08-15] MEDS: HYDROCHLOROTHIAZIDE 25 MG TAB PO SCH (09:12)
[2018-08-15] MEDS: FERROUS FUMARATE (SR) TAB PO SCH ×2 (09:12→21:14)
[2018-08-15] MEDS: LOSARTAN 50 MG TAB PO SCH (09:12)
[2018-08-15] MEDS: ASPIRIN (EC) 81 MG TAB PO SCH ×2 (09:12→21:14)
[2018-08-15] MEDS: CHOLECALCIFEROL 2,000 UNIT CAP PO SCH (09:12)
[2018-08-15] MEDS: MAGNESIUM OXIDE 400 MG TAB PO SCH (09:12)
[2018-08-15 14:00] VITALS: BP 129/77; PULSE 67; RESP 19
--- NOTE | 2018-08-15 17:00 | NUR ---
Patient up in wheelchair talking to her daughter. Offered TV & educational materials for recreational activities. Alert, oriented x 4. No SOB. Denies pain. Gave health teaching about hydrochlorothiazide medication side effects. Patient receptive. Kept clean & dry. All due meds given. Call light within reach. Chair alarm on. Kept comfortable.
[2018-08-15 19:44] VITALS: BP 137/83; PULSE 63; RESP 19
--- NOTE | 2018-08-15 19:56 | PN ---
Date/Time of Note Date/Time of Note DATE: 08/15/18 TIME: 19:24 Assessment/Plan VTE Prophylaxis Risk score (from Ns)>0 risk: 8 [place]CD applied (from [facility] [place] Yes Pharmacological prophylaxis: NA/contraindicated, other (ambulating) Pharm contraindication: low risk/ambulating Lines/Catheters Urinary Cath still in place: No Assessment/Plan Hospital Course 1. She is post op R THR and is doing well . Leg swelling improving. venous dop pler which was negative for DVT . continue current medication, leg elevation and PT . 2. HTN , has been elevated .clonidine discontinued and hydrochlorothiazide 25 mg a day started, which the patient was on prior to admission. BP better controlled now Subjective 24 Hr Interval Summary Free Text/Dictation no acute events overnight Exam/Review of Systems Exam Vitals Vital Signs Date Temp Pulse Resp B/P (MAP) Pulse Ox O2 O2 Flow FiO2 Time Delivery Rate 08/15/18 98.0 67 19 129/77 95 Room Air 14:00 (94) Intake and Output 08/14/18 08/14/18 08/15/18 1515:00 23:00 07:00 IntakeIntake Total 400 ml 100 ml BalanceBalance 400 ml 100 ml Medications Medication Current Medications Docusate Sodium (Colace) 100 mg BID PO Last administered on 08/15/18at 09:11; Admin Dose 100 MG; Start 08/05/18 at 09:00 Lactulose (Enulose) 20 gm DAILY PRN PO CONSTIPATION; Start 08/04/18 at 23:00 Acetaminophen (Tylenol Tab) 650 mg Q4H PRN PO MILD PAIN(1-3)OR ELEVATED TEMP Last administered on 08/15/18at 02:33; Admin Dose 650 MG; Start 08/04/18 at 23:30 Aspirin (Halfprin) 81 mg BID PO Last administered on 08/15/18at 09:12; Admin Dose 81 MG; Start 08/05/18 at 09:00 Bisacodyl (Dulcolax Supp) 10 mg DAILY PRN [place] CONSTIPATION; Start 08/04/18 at 23:30 Calcium Carbonate (Tums) 500 mg BID PO Last administered on 08/15/18at 09:11; Admin Dose 500 MG; Start 08/05/18 at 09:00 Cholecalciferol (Vitamin D) 2,000 unit DAILY PO Last administered on 08/15/18 09:12; Admin Dose 2,000 UNIT; Start 08/05/18 at 09:00 Senna/Docusate Sodium (Senokot-S) 2 tab BID PRN PO CONSTIPATION; Start 08/04/18 at 23:30 Docusate Sodium/ Ferrous Fumarate (Олег-Sequels) 1 tab BID PO Last administered on 08/15/18 09:12; Admin Dose 1 TAB; Start 08/05/18 at 09:00 Pantoprazole (Protonix Tab) 40 mg DAILY@06 PO Last administered on 08/15/18 06:22; Admin Dose 40 MG; Start 08/05/18 at 06:00 IV Flush (NS 3 ml) 3 ml PER PROTOCOL IV ; Start 08/05/18 at 03:00 Losartan Potassium (Cozaar) 100 mg DAILY PO Last administered on 08/15/18 09:12; Admin Dose 100 MG; Start 08/05/18 at 09:00 Magnesium Oxide (Mag-Ox 400) 400 mg DAILY PO Last administered on 08/15/18 09:12; Admin Dose 400 MG; Start 08/05/18 at 09:00 Metoprolol Succinate (Toprol Xl) 50 mg BID PO Last administered on 08/15/18 09:11; Admin Dose 50 MG; Start 08/05/18 at 09:00 Polyethylene Glycol (Miralax) 17 gm DAILY PRN PO CONSTIPATION; Start 08/06/18 at 10:00 Celecoxib (Celebrex) 100 mg BID PRN PO OSTEOARTHRITIS; Start 08/07/18 at 10:30 Hydrochlorothiazide (Hydrochlorothiazide) 25 mg DAILY PO Last administered on 08/15/18 09:12; Admin Dose 25 MG; Start 08/14/18 at 09:00 MADDIE HERNANDEZ Aug 15, 2018 19:56
[2018-08-15 21:17] VITALS: BP 154/69; PULSE 70
[2018-08-16] VITALS (8 sets, daily range): BP systolic 126–185; BP diastolic 65–88; PULSE 57–72; RESP 18–20
[2018-08-16] MEDS: ACETAMINOPHEN 325 MG TAB PO PRN ×2 (02:03→22:09)
--- NOTE | 2018-08-16 03:07 | NUR ---
RN Notes Patient received in bed. Awake, alert and oriented x 4. Able to verbally communicate needs. On room air. No distress noted. Patient complained of pain to bilateral lower extremities. Pain adequately managed with PRN Tylenol. Patient had no further complaints of pain upon reassessment. Patient is continent of bowel and bladder function. Assisted to bathroom as needed. Patient able to ambulate using walker. Tolerated each episode well. Hourly rounding provided. Patient's bed kept at lowest position with bed alarm activated for safety. Call light button within reach. Will continue to monitor and endorse accordingly.
--- NOTE | 2018-08-16 03:21 | NUR ---
Pt report received from Genie PERSON around 0315am to f/up continuation of care.
[2018-08-16] MEDS: PANTOPRAZOLE (EC) 40 MG TAB PO SCH (06:09)
--- NOTE | 2018-08-16 07:00 | NUR ---
Pt slept well during night hours, no complaints noted. Vital signs stable. Pt able to turn on her sides. Right hip incision dry and intact. Continent for bladder and bowel, uses restroom, no BM noted. Refused SCD. Bed alarm activated for safety, call light and bedside table within reach.
--- NOTE | 2018-08-16 07:59 | NUR ---
[facility] OT Weekly Summary Dates From: 08/05/18 to 08/12/18 Patient Name: MÓNICA VASQUEZ MR#: [id number] Height: 5 ft 5 in Weight: 175 lbs 4.28 oz 79.500 kg Reason for Visit: TOTAL RIGHT HIP ARTHROPLASTY Precautions:fall risk, post hip precautions Date: 08/16/18 Time: 0800 User: DELFIN PENDLETON Short-term Goals: 1. Indep w/ Grooming 2. Indep/ Mod Indep w/ UB/LB dress 3. Mod I w/ Bathing 4. Mod I w/ Toileting 5. Mod I w/ functional transfers Upon admission pt has the following functional levels: Grooming: Mod I, UB/LB dress: Sup/ Min A, Bathing: Min A, Toileting: Min A, Funct transfers: Min A. Pt making good progress towards goals through ADL retraining, NMRE, Thera ex and actv, pt and cg education on safety. Pt's current functional levels are: Grooming: SBA, UB/LB dress: SBA/ Min A, Bathing: Min A, Toileting: SBA, Funct transfers: SBA. Recommended equipment: Tub transfer bench and commode.
--- NOTE | 2018-08-16 08:25 | NUR ---
[facility] PT Weekly Summary Dates From: 08/10/18 to 08/16/18 Patient Name: MÓNICA VASQUEZ MR#: [id number] Height: 5 ft 5 in Weight: 175 lbs 4.28 oz 79.500 kg Reason for Visit: TOTAL RIGHT HIP ARTHROPLASTY Precautions: fall risk, Rt WBAT, Rt anterior hip precautions. Date: 08/16/18 Time: 0825 User: TALON HARDIN Short-term Goals: Bed Mobility: CGA Transfers SBA with FWW Gait SBA with FWW 100ft Stairs SBA with 1 rail/SPC 12steps Pt continues to show good gains while here in VR. Currently demonstrates supervision with bed mobility, supervision with transfers using a FWW, SBA gait x 150 ft with a FWW, and SBA 15-step stair using B rails. Pt refused use of SPC and 1 rail for stair training. She stated she can use 2 handrails at home. Pt achieved all STGs. Cont POC to meet LTGs before DC. Recommendations: BSC and home with HHPT. Pt already owns a FWW.
[2018-08-16] MEDS: DOCUSATE SODIUM 100 MG CAP PO SCH ×2 (09:18→20:37)
[2018-08-16] MEDS: LOSARTAN 50 MG TAB PO SCH (09:18)
[2018-08-16] MEDS: CALCIUM CARBONATE 500 MG CHEW TAB PO SCH ×2 (09:19→20:37)
[2018-08-16] MEDS: FERROUS FUMARATE (SR) TAB PO SCH ×2 (09:19→20:36)
[2018-08-16] MEDS: ASPIRIN (EC) 81 MG TAB PO SCH ×2 (09:19→20:36)
[2018-08-16] MEDS: HYDROCHLOROTHIAZIDE 25 MG TAB PO SCH (09:19)
[2018-08-16] MEDS: MAGNESIUM OXIDE 400 MG TAB PO SCH (09:19)
[2018-08-16] MEDS: METOPROLOL (XL) 50 MG TAB PO SCH ×2 (09:19→20:37)
[2018-08-16] MEDS: CHOLECALCIFEROL 2,000 UNIT CAP PO SCH (09:19)
--- NOTE | 2018-08-16 12:11 | CONS ---
Assessment/Plan Assessment/Plan Hospital Course (Demo Recall) 1. She is post op R THR and is doing well . She has slight swelling of both legs but more on R leg . I did a venous doppler which was negative for DVT . She has less edema today after I restarted the HCTZ . 2. HTN , has been elevated . I will stop clonidine for now. I reordered hydrochlorothiazide 25 mg a day, which the patient was on prior to admission. Her blood tests today are acceptable . Consultation Date/Type/Reason Admit Date/Time Aug 04, 2018 at 21:30 Initial Consult Date Type of Consult medicine Date/Time of Note DATE: 08/16/18 TIME: 12:06 24 HR Interval Summary Free Text/Dictation Alma Delia is being seen in medicine follow up . She has no new complaints and is feeling good . Constitutional: no complaints, improved Exam/Review of Systems Exam Vitals Vital Signs Date Temp Pulse Resp B/P (MAP) Pulse Ox O2 O2 Flow FiO2 Time Delivery Rate 08/16/18 97.8 62 18 154/68 96 Room Air 02:14 (96) Intake and Output 08/15/18 08/15/18 08/16/18 1515:00 23:00 07:00 IntakeIntake Total 200 ml 450 ml BalanceBalance 200 ml 450 ml Constitutional: alert, oriented, well developed Respiratory: clear to auscultation, normal air movement Cardiovascular: regular rate and rhythm, edema Gastrointestinal: soft, non-tender Extremities: edema Results Result Diagram: 08/16/18 0633 08/16/18 0633 Results 24hrs Laboratory Tests Test 08/16/18 06:33 White Blood Count 6.1 Red Blood Count 3.10 L Hemoglobin 9.8 L Hematocrit 30.7 L Mean Corpuscular Volume 99.0 Mean Corpuscular Hemoglobin 31.6 Mean Corpuscular Hemoglobin Concent 31.9 L Red Cell Distribution Width 13.8 Platelet Count 336 Mean Platelet Volume 9.0 Immature Granulocytes % 0.200 Neutrophils % 57.5 Lymphocytes % 26.4 Monocytes % 7.4 Eosinophils % 7.4 H Basophils % 1.1 Nucleated Red Blood Cells % 0.0 Immature Granulocytes # 0.010 Neutrophils # 3.5 Lymphocytes # 1.6 Monocytes # 0.5 Eosinophils # 0.5 Basophils # 0.1 Nucleated Red Blood Cells # 0.0 Sodium Level 141 Potassium Level 4.4 Chloride Level 106 Carbon Dioxide Level 29 Anion Gap 6 Blood Urea Nitrogen 22 H Creatinine 0.94 Est Glomerular Filtrat Rate mL/min Glucose Level 90 Calcium Level 9.7 Total Bilirubin 0.1 L Direct Bilirubin 0.00 Indirect Bilirubin 0.1 Aspartate Amino Transf (AST/SGOT) 17 Alanine Aminotransferase (ALT/SGPT) 12 L Alkaline Phosphatase 74 Total Protein 6.3 Albumin 3.4 Globulin 2.90 Albumin/Globulin Ratio 1.17 Medications Medication Current Medications Docusate Sodium (Colace) 100 mg BID PO Last administered on 08/16/18 09:18; Admin Dose 100 MG; Start 08/05/18 at 09:00 Lactulose (Enulose) 20 gm DAILY PRN PO CONSTIPATION; Start 08/04/18 at 23:00 Acetaminophen (Tylenol Tab) 650 mg Q4H PRN PO MILD PAIN(1-3)OR ELEVATED TEMP Last administered on 08/16/18at 02:03; Admin Dose 650 MG; Start 08/04/18 at 23:30 Aspirin (Halfprin) 81 mg BID PO Last administered on 08/16/18 09:19; Admin Dose 81 MG; Start 08/05/18 at 09:00 Bisacodyl (Dulcolax Supp) 10 mg DAILY PRN [place] CONSTIPATION; Start 08/04/18 at 23:30 Calcium Carbonate (Tums) 500 mg BID PO Last administered on 08/16/18 09:19; Admin Dose 500 MG; Start 08/05/18 at 09:00 Cholecalciferol (Vitamin D) 2,000 unit DAILY PO Last administered on 08/16/18 09:19; Admin Dose 2,000 UNIT; Start 08/05/18 at 09:00 Senna/Docusate Sodium (Senokot-S) 2 tab BID PRN PO CONSTIPATION; Start 08/04/18 at 23:30 Docusate Sodium/ Ferrous Fumarate (Олег-Sequels) 1 tab BID PO Last administered on 08/16/18 09:19; Admin Dose 1 TAB; Start 08/05/18 at 09:00 Pantoprazole (Protonix Tab) 40 mg DAILY@06 PO Last administered on 08/16/18 06:09; Admin Dose 40 MG; Start 08/05/18 at 06:00 IV Flush (NS 3 ml) 3 ml PER PROTOCOL IV ; Start 08/05/18 at 03:00 Losartan Potassium (Cozaar) 100 mg DAILY PO Last administered on 08/16/18at 09:18; Admin Dose 100 MG; Start 08/05/18 at 09:00 Magnesium Oxide (Mag-Ox 400) 400 mg DAILY PO Last administered on 08/16/18at 09:19; Admin Dose 400 MG; Start 08/05/18 at 09:00 Metoprolol Succinate (Toprol Xl) 50 mg BID PO Last administered on 08/16/18at 09:19; Admin Dose 50 MG; Start 08/05/18 at 09:00 Polyethylene Glycol (Miralax) 17 gm DAILY PRN PO CONSTIPATION; Start 08/06/18 at 10:00 Celecoxib (Celebrex) 100 mg BID PRN PO OSTEOARTHRITIS; Start 08/07/18 at 10:30 Hydrochlorothiazide (Hydrochlorothiazide) 25 mg DAILY PO Last administered on 08/16/18 09:19; Admin Dose 25 MG; Start 08/14/18 at 09:00 DEMETRIO WRIGHT MD Aug 16, 2018 12:11
--- NOTE | 2018-08-16 12:19 | PN ---
Date/Time of Note Date/Time of Note DATE: 08/16/18 TIME: 12:18 Objective Vital Signs Date Temp Pulse Resp B/P (MAP) Pulse Ox O2 O2 Flow FiO2 Time Delivery Rate 08/16/18 97.8 62 18 154/68 96 Room Air 02:14 (96) Intake and Output 08/15/18 08/15/18 08/16/18 1515:00 23:00 07:00 IntakeIntake Total 200 ml 450 ml BalanceBalance 200 ml 450 ml Exam INTERDISCIPLINARY TEAM CONFERENCE Physical Exam: pulm-cta abd-soft BOWEL- Cont BLADDER-Cont SKIN- intact OT- DRESSING- sba/cga BATHING-sba/cga TOILETING-cga PT- BED MOBILITY-sba TRANSFERS-sba AMBULATION-sba 150 A/P- Interdisciplinary team conference held today. Please see interdisciplinary sheet. Working toward d.cGloria on 08/18 with post discharge follow up of physical therapy, occupational therapy. Results/Medications Result Diagram: 08/16/18 0633 08/16/18 0633 Results 24 hrs Laboratory Tests Test 08/16/18 06:33 White Blood Count 6.1 Red Blood Count 3.10 L Hemoglobin 9.8 L Hematocrit 30.7 L Mean Corpuscular Volume 99.0 Mean Corpuscular Hemoglobin 31.6 Mean Corpuscular Hemoglobin Concent 31.9 L Red Cell Distribution Width 13.8 Platelet Count 336 Mean Platelet Volume 9.0 Immature Granulocytes % 0.200 Neutrophils % 57.5 Lymphocytes % 26.4 Monocytes % 7.4 Eosinophils % 7.4 H Basophils % 1.1 Nucleated Red Blood Cells % 0.0 Immature Granulocytes # 0.010 Neutrophils # 3.5 Lymphocytes # 1.6 Monocytes # 0.5 Eosinophils # 0.5 Basophils # 0.1 Nucleated Red Blood Cells # 0.0 Sodium Level 141 Potassium Level 4.4 Chloride Level 106 Carbon Dioxide Level 29 Anion Gap 6 Blood Urea Nitrogen 22 H Creatinine 0.94 Est Glomerular Filtrat Rate mL/min Glucose Level 90 Calcium Level 9.7 Total Bilirubin 0.1 L Direct Bilirubin 0.00 Indirect Bilirubin 0.1 Aspartate Amino Transf (AST/SGOT) 17 Alanine Aminotransferase (ALT/SGPT) 12 L Alkaline Phosphatase 74 Total Protein 6.3 Albumin 3.4 Globulin 2.90 Albumin/Globulin Ratio 1.17 Medications Current Medications Docusate Sodium (Colace) 100 mg BID PO Last administered on 08/16/18 09:18; Admin Dose 100 MG; Start 08/05/18 at 09:00 Lactulose (Enulose) 20 gm DAILY PRN PO CONSTIPATION; Start 08/04/18 at 23:00 Acetaminophen (Tylenol Tab) 650 mg Q4H PRN PO MILD PAIN(1-3)OR ELEVATED TEMP Last administered on 08/16/18at 02:03; Admin Dose 650 MG; Start 08/04/18 at 23:30 Aspirin (Halfprin) 81 mg BID PO Last administered on 08/16/18 09:19; Admin Dose 81 MG; Start 08/05/18 at 09:00 Bisacodyl (Dulcolax Supp) 10 mg DAILY PRN [place] CONSTIPATION; Start 08/04/18 at 23:30 Calcium Carbonate (Tums) 500 mg BID PO Last administered on 08/16/18 09:19; Admin Dose 500 MG; Start 08/05/18 at 09:00 Cholecalciferol (Vitamin D) 2,000 unit DAILY PO Last administered on 08/16/18 09:19; Admin Dose 2,000 UNIT; Start 08/05/18 at 09:00 Senna/Docusate Sodium (Senokot-S) 2 tab BID PRN PO CONSTIPATION; Start 08/04/18 at 23:30 Docusate Sodium/ Ferrous Fumarate (Олег-Sequels) 1 tab BID PO Last ad ministered on 08/16/18 09:19; Admin Dose 1 TAB; Start 08/05/18 at 09:00 Pantoprazole (Protonix Tab) 40 mg DAILY@06 PO Last administered on 08/16/18at 06:09; Admin Dose 40 MG; Start 08/05/18 at 06:00 IV Flush (NS 3 ml) 3 ml PER PROTOCOL IV ; Start 08/05/18 at 03:00 Losartan Potassium (Cozaar) 100 mg DAILY PO Last administered on 08/16/18 09:18; Admin Dose 100 MG; Start 08/05/18 at 09:00 Magnesium Oxide (Mag-Ox 400) 400 mg DAILY PO Last administered on 08/16/18 09:19; Admin Dose 400 MG; Start 08/05/18 at 09:00 Metoprolol Succinate (Toprol Xl) 50 mg BID PO Last administered on 2/11/19at 09:19; Admin Dose 50 MG; Start 08/05/18 at 09:00 Polyethylene Glycol (Miralax) 17 gm DAILY PRN PO CONSTIPATION; Start 08/06/18 at 10:00 Celecoxib (Celebrex) 100 mg BID PRN PO OSTEOARTHRITIS; Start 08/07/18 at 10:30 Hydrochlorothiazide (Hydrochlorothiazide) 25 mg DAILY PO Last administered on 08/16/18at 09:19; Admin Dose 25 MG; Start 08/14/18 at 09:00 ESTHER RUSSELL MD Aug 16, 2018 12:19
--- NOTE | 2018-08-16 17:00 | NUR ---
Patient up in wheelchair doing rehab exercises. Offered TV & educational materials for recreational activities. Alert, oriented x 4. No SOB. Denies pain. Gave health teaching about stool softener medication side effects. Patient receptive. Kept clean & dry. All due meds given. Call light within reach. Chair alarm on. Kept comfortable.
--- NOTE | 2018-08-16 22:53 | NUR ---
At 2210 -BP of 177/75, Hr 65 on Left arm; Right arm BP 185/88, Hr 67. Patient is asymptomatic. No c/o headache, chest pain. Patient's condition stable. Notified Faheem James (contract administration manager for Dr. Cleary) at 2230 and order received. At 2250 - recheck BP prior to giving clonidine. BP 142/67, Hr 60. Clonidine prn wasnot given. Will continue to monitor.
[2018-08-17 02:00] VITALS: BP 147/67; PULSE 63; RESP 18
--- NOTE | 2018-08-17 05:43 | NUR ---
Patient's condition stable. No distress. Slept well during the night. Needs met. Medicated with tylenol for BLE aching pain, with good relief. Hourly rounding done. Call light in reach. Bed alarm on for safety. Instructed to call for assistance.
[2018-08-17] MEDS: PANTOPRAZOLE (EC) 40 MG TAB PO SCH (06:35)
[2018-08-17 07:00] VITALS: BP 168/68; PULSE 61; RESP 18
[2018-08-17] MEDS: FERROUS FUMARATE (SR) TAB PO SCH ×2 (08:40→20:38)
[2018-08-17] MEDS: MAGNESIUM OXIDE 400 MG TAB PO SCH (08:41)
[2018-08-17] MEDS: METOPROLOL (XL) 50 MG TAB PO SCH ×2 (08:41→20:40)
[2018-08-17] MEDS: LOSARTAN 50 MG TAB PO SCH (08:41)
[2018-08-17] MEDS: HYDROCHLOROTHIAZIDE 25 MG TAB PO SCH (08:41)
[2018-08-17] MEDS: ASPIRIN (EC) 81 MG TAB PO SCH ×2 (08:41→20:38)
[2018-08-17] MEDS: DOCUSATE SODIUM 100 MG CAP PO SCH ×2 (08:41→20:38)
[2018-08-17] MEDS: CHOLECALCIFEROL 2,000 UNIT CAP PO SCH (08:42)
[2018-08-17] MEDS: CALCIUM CARBONATE 500 MG CHEW TAB PO SCH ×2 (08:43→20:38)
--- NOTE | 2018-08-17 13:32 | PN ---
Date/Time of Note Date/Time of Note DATE: 08/17/18 TIME: 13:31 Objective Vital Signs Date Temp Pulse Resp B/P (MAP) Pulse Ox O2 O2 Flow FiO2 Time Delivery Rate 08/17/18 98.8 61 18 168/68 94 Room Air 07:00 (101) Intake and Output 08/16/18 08/16/18 08/17/18 1515:00 23:00 07:00 IntakeIntake Total 200 ml 200 ml 50 ml BalanceBalance 200 ml 200 ml 50 ml Exam Rehab- Other orthopedic injury with right hip severe osteoarthritis status post right total hip replacement. Great progress, working towards dc tomorrow Acute pain syndrome- under control Hypertension. History of left total hip replacement. History of bilateral salpingo-oophorectomy. Results/Medications Result Diagram: 08/16/1863208/16/18632 Medications Current Medications Docusate Sodium (Colace) 100 mg BID PO Last administered on 08/17/18at 08:41; Admin Dose 100 MG; Start 08/05/18 at 09:00 Lactulose (Enulose) 20 gm DAILY PRN PO CONSTIPATION; Start 08/04/18 at 23:00 Acetaminophen (Tylenol Tab) 650 mg Q4H PRN PO MILD PAIN(1-3)OR ELEVATED TEMP Last administered on 08/16/18at 22:09; Admin Dose 650 MG; Start 08/04/18 at 23:30 Aspirin (Halfprin) 81 mg BID PO Last administered on 08/17/18at 08:41; Admin Dose 81 MG; Start 08/05/18 at 09:00 Bisacodyl (Dulcolax Supp) 10 mg DAILY PRN [place] CONSTIPATION; Start 08/04/18 at 23:30 Calcium Carbonate (Tums) 500 mg BID PO Last administered on 08/17/18at 08:43; Admin Dose 500 MG; Start 08/05/18 at 09:00 Cholecalciferol (Vitamin D) 2,000 unit DAILY PO Last administered on 08/17/18at 08:42; Admin Dose 2,000 UNIT; Start 08/05/18 at 09:00 Senna/Docusate Sodium (Senokot-S) 2 tab BID PRN PO CONSTIPATION; Start 08/04/18 at 23:30 Docusate Sodium/ Ferrous Fumarate (Олег-Sequels) 1 tab BID PO Last administered on 08/17/18 08:40; Admin Dose 1 TAB; Start 08/05/18 at 09:00 Pantoprazole (Protonix Tab) 40 mg DAILY@06 PO Last administered on 08/17/18 06:35; Admin Dose 40 MG; Start 08/05/18 at 06:00 IV Flush (NS 3 ml) 3 ml PER PROTOCOL IV ; Start 08/05/18 at 03:00 Losartan Potassium (Cozaar) 100 mg DAILY PO Last administered on 08/17/18 08:41; Admin Dose 100 MG; Start 08/05/18 at 09:00 Magnesium Oxide (Mag-Ox 400) 400 mg DAILY PO Last administered on 08/17/18 08:41; Admin Dose 400 MG; Start 08/05/18 at 09:00 Metoprolol Succinate (Toprol Xl) 50 mg BID PO Last administered on 08/17/18 08:41; Admin Dose 50 MG; Start 08/05/18 at 09:00 Polyethylene Glycol (Miralax) 17 gm DAILY PRN PO CONSTIPATION; Start 08/06/18 at 10:00 Celecoxib (Celebrex) 100 mg BID PRN PO OSTEOARTHRITIS; Start 08/07/18 at 10:30 Hydrochlorothiazide (Hydrochlorothiazide) 25 mg DAILY PO Last administered on 08/17/18 08:41; Admin Dose 25 MG; Start 08/14/18 at 09:00 Clonidine (Catapres) 0.1 mg Q4H PRN PO ELEVATED BLOOD PRESSURE; Start 08/16/18 at 23:00 ESTHER RUSSELL MD Aug 17, 2018 13:32
[2018-08-17 14:00] VITALS: BP 166/68; PULSE 66; RESP 18
--- NOTE | 2018-08-17 18:32 | NUR ---
Patient is alert and breathing even. no SOB. no c/o pain at this time. Patient is cooperative during care. patient with s/p right hip surgery. no s/sx of infection. no bleeding . shows of healing. no bruise on the site. patient is ambulatory with assistive device and tolerated well.
--- NOTE | 2018-08-17 19:36 | CONS ---
Assessment/Plan Assessment/Plan Hospital Course (Demo Recall) 1. She is post op R THR and is doing well . She has slight swelling of both legs but more on R leg . I did a venous doppler which was negative for DVT . She has less edema , after I restarted the HCTZ . 2. HTN , BP has been elevated . She is back on clonidine , as needed for elevated blood pressure. I will start amlodipine 2.5 mg a day. This will be started in the morning. The patient is scheduled to go home tomorrow. I will visit her before discharge to review her medications.. Consultation Date/Type/Reason Admit Date/Time Aug 04, 2018 at 21:30 Initial Consult Date Type of Consult medicine Date/Time of Note DATE: 08/17/18 TIME: 19:32 24 HR Interval Summary Free Text/Dictation Alma Delia is being seen today in medical follow-up. She is awake and alert. She has no new problems. Her blood pressure has been elevated. Constitutional: no complaints, improved Exam/Review of Systems Exam Vitals Vital Signs Date Temp Pulse Resp B/P (MAP) Pulse Ox O2 O2 Flow FiO2 Time Delivery Rate 08/17/18 98.8 66 18 166/68 97 Room Air 14:00 (100) Intake and Output 08/16/18 08/16/18 08/17/18 1515:00 23:00 07:00 IntakeIntake Total 200 ml 200 ml 50 ml BalanceBalance 200 ml 200 ml 50 ml Constitutional: alert, oriented, well developed Results Result Diagram: 08/16/18 0633 08/16/18 0633 Medications Medication Current Medications Docusate Sodium (Colace) 100 mg BID PO Last administered on 08/17/18at 08:41; Admin Dose 100 MG; Start 08/05/18 at 09:00 Lactulose (Enulose) 20 gm DAILY PRN PO CONSTIPATION; Start 08/04/18 at 23:00 Acetaminophen (Tylenol Tab) 650 mg Q4H PRN PO MILD PAIN(1-3)OR ELEVATED TEMP Last administered on 08/16/18at 22:09; Admin Dose 650 MG; Start 08/04/18 at 23:30 Aspirin (Halfprin) 81 mg BID PO Last administered on 08/17/18at 08:41; Admin Dose 81 MG; Start 08/05/18 at 09:00 Bisacodyl (Dulcolax Supp) 10 mg DAILY PRN [place] CONSTIPATION; Start 08/04/18 at 23:30 Calcium Carbonate (Tums) 500 mg BID PO Last administered on 08/17/18 08:43; Admin Dose 500 MG; Start 08/05/18 at 09:00 Cholecalciferol (Vitamin D) 2,000 unit DAILY PO Last administered on 08/17/18 08:42; Admin Dose 2,000 UNIT; Start 08/05/18 at 09:00 Senna/Docusate Sodium (Senokot-S) 2 tab BID PRN PO CONSTIPATION; Start 08/04/18 at 23:30 Docusate Sodium/ Ferrous Fumarate (Олег-Sequels) 1 tab BID PO Last administered on 08/17/18 08:40; Admin Dose 1 TAB; Start 08/05/18 at 09:00 Pantoprazole (Protonix Tab) 40 mg DAILY@06 PO Last administered on 08/17/18 06:35; Admin Dose 40 MG; Start 08/05/18 at 06:00 IV Flush (NS 3 ml) 3 ml PER PROTOCOL IV ; Start 08/05/18 at 03:00 Losartan Potassium (Cozaar) 100 mg DAILY PO Last administered on 08/17/18 08:41; Admin Dose 100 MG; Start 08/05/18 at 09:00 Magnesium Oxide (Mag-Ox 400) 400 mg DAILY PO Last administered on 08/17/18 08:41; Admin Dose 400 MG; Start 08/05/18 at 09:00 Metoprolol Succinate (Toprol Xl) 50 mg BID PO Last administered on 08/17/18 08:41; Admin Dose 50 MG; Start 08/05/18 at 09:00 Polyethylene Glycol (Miralax) 17 gm DAILY PRN PO CONSTIPATION; Start 08/06/18 at 10:00 Celecoxib (Celebrex) 100 mg BID PRN PO OSTEOARTHRITIS; Start 08/07/18 at 10:30 Hydrochlorothiazide (Hydrochlorothiazide) 25 mg DAILY PO Last administered on 08/17/18 08:41; Admin Dose 25 MG; Start 08/14/18 at 09:00 Clonidine (Catapres) 0.1 mg Q4H PRN PO ELEVATED BLOOD PRESSURE; Start 08/16/18 at 23:00 Amlodipine Besylate (Norvasc) 2.5 mg DAILY PO ; Start 08/18/18 at 09:00; Status UNV DEMETRIO WRIGHT MD Aug 17, 2018 19:36
[2018-08-17 19:59] VITALS: BP 161/72; PULSE 70; RESP 18
[2018-08-17] MEDS: ACETAMINOPHEN 325 MG TAB PO PRN (21:56)
[2018-08-18 02:00] VITALS: BP 145/66; PULSE 68; RESP 18
--- NOTE | 2018-08-18 05:05 | NUR ---
Patient slept well during the night and in no distress. Medicated for BLE mild pain of 3, with tylenol as per pt's request. Ambulated to bathroom with assistance, tolerated well. Right hip incision with dermabond - open to air. Hourly rounding performed and needs attended to. Bed alarm on for safety precaution. Call light and bedside table within reach. Instructed to call for assistance.
[2018-08-18] MEDS: PANTOPRAZOLE (EC) 40 MG TAB PO SCH (05:20)
[2018-08-18 07:30] VITALS: BP_SYST 118; BP_SYST 145; BP_DIAS 58; BP_DIAS 66; PULSE 60; RESP 18
[2018-08-18] MEDS: DOCUSATE SODIUM 100 MG CAP PO SCH (08:56)
[2018-08-18] MEDS: FERROUS FUMARATE (SR) TAB PO SCH (08:57)
[2018-08-18] MEDS: HYDROCHLOROTHIAZIDE 25 MG TAB PO SCH (08:57)
[2018-08-18] MEDS: ASPIRIN (EC) 81 MG TAB PO SCH (08:57)
[2018-08-18] MEDS: MAGNESIUM OXIDE 400 MG TAB PO SCH (08:57)
[2018-08-18] MEDS: LOSARTAN 50 MG TAB PO SCH (08:57)
[2018-08-18] MEDS: CALCIUM CARBONATE 500 MG CHEW TAB PO SCH (08:58)
[2018-08-18] MEDS: METOPROLOL (XL) 50 MG TAB PO SCH (08:58)
[2018-08-18] MEDS: CHOLECALCIFEROL 2,000 UNIT CAP PO SCH (08:58)
[2018-08-18] MEDS ORDERED: AMLODIPINE 2.5 MG TAB PO SCH (09:00)
--- NOTE | 2018-08-18 11:00 | NUR ---
[facility] NOTES PT SITTING UP IN BED, ALERT AND ORIENTED X 4, VERBALLY RESPONSIVE AND IS IN STABLE CONDITION. DISCHARGE INSTRUCTIONS GIVEN TO PATIENT, DISCUSSED MEDICATION LIST, HIP PRECAUTIONS AND DISCUSSED TO HAVE FOLLOW UP APPT WITH PCP AND ORTHO MD, DR. PADILLA. PROVIDED DR. PADILLA'S OFFICE NUMBER. PATIENT VERBALIZED UNDERSTANDING AND IS FAMILIAR WITH MEDICATION. ALL BELONGINGS COMPLETE. COMMODE AT BEDSIDE. PT'S DAUGHTER, CALLIE, PRESENT AT BEDSIDE FOR CAR TRANSFER TEACHING. WILL CONTINUE TO MONITOR PT.
--- NOTE | 2018-08-18 12:00 | NUR ---
[place] electromechanical assembly technician Summary Date of Discharge: 08/18/18 Patient Name: MÓNICA VASQUEZ MR#: [id number] Height: 5 ft 5 in Weight: 175 lbs 4.28 oz 79.500 kg Reason for Visit: TOTAL RIGHT HIP ARTHROPLASTY Precautions: Date: 08/18/18 Time: 1450 User: HALINA PÉREZ Patient's progress, Adm-->DC: Home Short-term Goals: 1. Pain management 2. Gait training 3. Mobility training 4. Medications administration 5. Short-term goals not met and reason/barriers: met Achievement of Long-term Goals: Long-term Goals not met and reason/barriers: Bladder - level of function and accidents: continent Bowel - level of function and accidents: continent Skin: Right Hip Surgery Status: healing Treatment: Changes: Pain: no c/o pain at this time Level: Location: Management: Changes: Functional levels: SBA Self Care: SBA Transfers: SBA Locomotion: SBA Assistance requirements: SBA Communication: independently Social Cognition: interacts appropriately Safety awareness: Interdisciplinary interactions: Patient education: Medications administration, transfers, wound care, appointment with Doctors Discharge needs: Comorbid conditions: HTN, Right Hip Surgery, osteoporosis
--- NOTE | 2018-08-18 13:13 | DS ---
Date/Time of Note Date/Time of Note DATE: 08/18/18 TIME: 13:13 Discharge Summary Admission/Discharge Info Admit Date/Time Aug 04, 2018 at 21:30 Discharge Date/Time Discharge Diagnosis 1. Other orthopedic injury with right hip severe osteoarthritis status post r ight total hip replacement. 2. Hypertension. 3. History of left total hip replacement. 4. History of bilateral salpingo-oophorectomy. 5. Improvements in self-care and mobility. Patient Condition: Good Hospital Course The patient was admitted for comprehensive interdisciplinary rehabilitation and made steady functional gains from a Mod level to a S/ [place] level for self care tasks and mobility including ambulating over 150 feet with the use of a FWW. Patient is being discharged home with the recommendation of home health PT, OT and RN follow up. The DC meds are per the medication reconciliation sheet. The discharge equipment recommendations include: FWW, BSC, shower chair. The patient will follow up with PMD and ortho upon DC. Home Meds Reported Medications Zinc (ZINC) 50 Mg Tablet, 50 MG PO DAILY, TAB 07/29/18 Magnesium Oxide* (Mag-Oxide*) 400 Mg Tablet, 400 MG PO DAILY, TAB 07/29/18 Calcium Carbonate/Vitamin D3 ([place] 500+D Tablet) 1 Each Tablet, 1 EACH PO BID, TAB 07/29/18 Norco-3 Fatty Acids (Super Norco-3) 1,000 Mg Capsule, 1000 MG PO BID, CAP 07/29/18 Hydrocodone/Acetaminophen ([place] 5-325 Tablet) 1 Each Tablet, 1 EACH PO Q6 PRN for PAIN, TAB 07/29/18 Gabapentin* (Gabapentin*) 100 Mg Capsule, 100 MG PO TID, #90 CAP 07/29/18 Aspirin (Low Dose Aspirin) 81 Mg Tablet.dr, 162 MG PO BID, #30 TAB 07/29/18 Metoprolol Succinate* (Toprol XL*) 50 Mg Tab.er.24h, 50 MG PO DAILY, #30 TAB 07/29/18 Losartan Potassium* (Losartan Potassium*) 100 Mg Tablet, 100 MG PO DAILY, TAB 07/29/18 Hydrochlorothiazide* (Hydrochlorothiazide*) 12.5 Mg Tablet, 12.5 MG PO DAILY, #60 TAB 07/29/18 Estropipate (Estropipate) 0.75 Mg Tablet, 0.75 MG PO ANAYA,GRIFFIN,PAPI,ELI,SUN, TAB 07/29/18 Primary Care Provider Care Physician ESTHER Jones MD Aug 18, 2018 13:13
--- NOTE | 2018-08-18 13:34 | CONS ---
Assessment/Plan Assessment/Plan Hospital Course (Demo Recall) 1. She is post op R THR and is doing well . She has slight swelling of both legs but more on R leg . I did a venous doppler which was negative for DVT . She has less edema , after I restarted the HCTZ . 2. HTN , BP is under better control. I started amlodipine 2.5 mg a day this morning. The patient is scheduled to go home today. She will continue the current medications that she has been taking in the hospital. I have given her a prescription for amlodipine 2.5 mg a day. She will come to see me in my office in 2 weeks. She will have home health who will see her and will monitor her blood pressure. They can let me know if there are any problems. Consultation Date/Type/Reason Admit Date/Time Aug 04, 2018 at 21:30 Initial Consult Date Type of Consult medicine Date/Time of Note DATE: 08/18/18 TIME: 13:30 24 HR Interval Summary Free Text/Dictation She is feeling better. She is about to be discharged today. She will be discharged to home with home health. Constitutional: no complaints, improved Exam/Review of Systems Exam Vitals Vital Signs Date Temp Pulse Resp B/P (MAP) Pulse Ox O2 O2 Flow FiO2 Time Delivery Rate 08/18/18 98.1 60 18 145/66 96 Room Air 07:30 (92) Intake and Output 08/17/18 08/17/18 08/18/18 1515:00 23:00 07:00 IntakeIntake Total 1680 ml 50 ml OutputOutput Total 800 ml BalanceBalance 880 ml 50 ml Constitutional: alert, oriented, well developed Respiratory: clear to auscultation, normal air movement Cardiovascular: regular rate and rhythm Gastrointestinal: soft, non-tender Musculoskeletal: nl extremities to inspection Results Result Diagram: 08/16/1863208/16/18632 Medications Medication Current Medications Docusate Sodium (Colace) 100 mg BID PO Last administered on 08/18/18at 08:56; Admin Dose 100 MG; Start 08/05/18 at 09:00 Lactulose (Enulose) 20 gm DAILY PRN PO CONSTIPATION; Start 08/04/18 at 23:00 Acetaminophen (Tylenol Tab) 650 mg Q4H PRN PO MILD PAIN(1-3)OR ELEVATED TEMP Last administered on 08/17/18 21:56; Admin Dose 650 MG; Start 08/04/18 at 23:30 Aspirin (Halfprin) 81 mg BID PO Last administered on 08/18/18 08:57; Admin Dose 81 MG; Start 08/05/18 at 09:00 Bisacodyl (Dulcolax Supp) 10 mg DAILY PRN [place] CONSTIPATION; Start 08/04/18 at 23:30 Calcium Carbonate (Tums) 500 mg BID PO Last administered on 08/18/18 08:58; Admin Dose 500 MG; Start 08/05/18 at 09:00 Cholecalciferol (Vitamin D) 2,000 unit DAILY PO Last administered on 08/18/18 08:58; Admin Dose 2,000 UNIT; Start 08/05/18 at 09:00 Senna/Docusate Sodium (Senokot-S) 2 tab BID PRN PO CONSTIPATION; Start 08/04/18 at 23:30 Docusate Sodium/ Ferrous Fumarate (Олег-Sequels) 1 tab BID PO Last administered on 08/18/18 08:57; Admin Dose 1 TAB; Start 08/05/18 at 09:00 Pantoprazole (Protonix Tab) 40 mg DAILY@06 PO Last administered on 08/18/18 05:20; Admin Dose 40 MG; Start 08/05/18 at 06:00 IV Flush (NS 3 ml) 3 ml PER PROTOCOL IV ; Start 08/05/18 at 03:00 Losartan Potassium (Cozaar) 100 mg DAILY PO Last administered on 08/18/18 08:57; Admin Dose 100 MG; Start 08/05/18 at 09:00 Magnesium Oxide (Mag-Ox 400) 400 mg DAILY PO Last administered on 08/18/18 08:57; Admin Dose 400 MG; Start 08/05/18 at 09:00 Metoprolol Succinate (Toprol Xl) 50 mg BID PO Last administered on 08/18/18 08:58; Admin Dose 50 MG; Start 08/05/18 at 09:00 Polyethylene Glycol (Miralax) 17 gm DAILY PRN PO CONSTIPATION; Start 08/06/18 at 10:00 Celecoxib (Celebrex) 100 mg BID PRN PO OSTEOARTHRITIS; Start 08/07/18 at 10:30 Hydrochlorothiazide (Hydrochlorothiazide) 25 mg DAILY PO Last administered on 08/18/18at 08:57; Admin Dose 25 MG; Start 08/14/18 at 09:00 Clonidine (Catapres) 0.1 mg Q4H PRN PO ELEVATED BLOOD PRESSURE; Start 08/16/18 at 23:00 Amlodipine Besylate (Norvasc) 2.5 mg DAILY PO Last administered on 08/18/18at 08:57; Admin Dose 2.5 MG; Start 08/18/18 at 09:00 DEMETRIO WRIGHT MD Aug 18, 2018 13:34
--- NOTE | 2018-08-18 13:41 | NUR ---
DISCHARGE NOTE PATIENT SEEN BY DR. OSHEA, CAR TRANSFER EDUCATION DONE BY PT. SKIN CHECK DONE, SKIN REMAINS INTACT. SURGICAL INCISION ON RIGHT HIP NOTED WITH NO SIGNS AND SYMPTOMS OF INFECTION, NO DRAINAGE NOTED, PICTURE OF INCISION SITE TAKEN AND PLACED IN CHART. PATIENT LEFT UNIT VIA WHEELCHAIR IN STABLE CONDITION, ACCOMPANIED BY DAUGHTER AND PHYSICAL THERAPIST.
--- NOTE | 2018-08-20 09:46 | NUR ---
[facility] PT Discharge Summary Date of Discharge: 08/18/18 Patient Name: MÓNICA VASQUEZ MR#: [id number] Height: 5 ft 5 in Weight: 175 lbs 4.28 oz 79.500 kg Reason for Visit: TOTAL RIGHT HIP ARTHROPLASTY Precautions: Rt WBAT, Rt anterior hip precautions. Date: 08/20/18 Time: 0946 User: TALON HARDIN Patient's progress, Adm-->DC: Short-term Goals: Bed Mobility: CGA Transfers SBA with FWW Gait SBA with FWW 100ft Stairs SBA with 1 rail/SPC 12steps Long-term Goals: Bed Mobility: SUPERVISION Transfers MOD IND with FWW Gait MOD IND with FWW 150ft Stairs SUP with 1 rail/SPC 12steps Pt made significant gains during her stay here in [facility]. At the time of eval, pt was needing min A with bed mobility, CGA with transfers, CGA with gait x 25 ft using a FWW and CGA with 5-step stair using B rails. Upon DC, she demonstrated modified independence with bed mobility, modified indep. bed <> chair and car transfers, supervised with tub transfer due to absence of grab bars (pt has 2 grab bars at home), modified indep. gait with FWW x 300 ft, and modified indep. with 15-step stair ascent/descent suing B rails. Pt achieved all LTGs. Recommendations: BSC and home with HHPT (owns FWW)
== END 2018-08-18 13:41 | disposition home health service (06) | DRG 561 ==
LOC: VRC 21:30
PROVIDERS: ADMIT Physical Medicine & Rehabilitation; ATTEND Internal Medicine
PROC: F07Z5ZZ Bed Mobility Treatment (ICD-10-PCS; principal; 2018-08-04)
PROC: F08Z2ZZ Grooming/Personal Hygiene Treatment (ICD-10-PCS; 2018-08-04)
DX: Z47.1 Aftercare following joint replacement surgery (principal); G89.18 Other acute postprocedural pain; Z96.641 Presence of right artificial hip joint; Z96.642 Presence of left artificial hip joint; I10 Essential (primary) hypertension; D64.9 Anemia, unspecified; Z79.82 Long term (current) use of aspirin; R35.0 Frequency of micturition; R35.1 Nocturia
CPT/HCPCS: 80048; 80053; 81003; 83735; 84100; 85025; 87081; 87086; 93970; 97110; 97112; 97116; 97150; 97163; 97166; 97530; 97535

== ENCOUNTER → 2018-08-23 | Outpatient (CLI) | payer MEDICARE, OTHER ==
--- NOTE | 2018-08-23 12:52 | PN ---
Date/Time of Note Date/Time of Note DATE: 08/23/18 TIME: 12:50 Assessment/Plan VTE Prophylaxis Pharmacological prophylaxis: other Assessment/Plan Assessment/Plan 83-year-old female who is progressing well after right hip replacement. The patient is advised to continue unrestricted activity and follow-up in 4-6 weeks. Physical therapy as prescribed Subjective 24 Hr Interval Summary Free Text/Dictation Alma Delia is progressing well after right hip replacement that was done a few weeks ago. She reports minimal pain. She is able to ambulate without support. She is pleased with her progress Exam/Review of Systems Exam Vitals Patient is afebrile Exam Examination of the right hip shows a healed incision. Range of motion is excellent. There is no leg length inequality. Patient is ambulating without support and without a limp. X-rays done today show bilateral hip replacements in good position with no evidence of loosening. CHUCK PADILLA Aug 23, 2018 12:52
--- NOTE | 2018-08-24 08:01 | RADRPT ---
PROCEDURE: Pelvis and right hip study CLINICAL INDICATION: Pain TECHNIQUE: AP pelvis and AP and frog lateral views of the right hip were performed. COMPARISON: Right hip study 07/23/2018 FINDINGS: There are bilateral total hip prosthesis in place that appear unremarkable without dislocation or loo sening. No acute fractures. No focal bony blastic or lytic lesions. Soft tissues are unremarkable. IMPRESSION: Bilateral unremarkable total hip prosthesis without dislocation loosening or acute fractures. RPTAT:AAJJ Physician Apoorva Date Time Electronically viewed and signed by Perez Contreras Physician on 08/24/2018 08:01 /
== END | disposition home or self-care (01) ==
LOC: HKI 11:16
PROVIDERS: ATTEND Orthopaedic Surgery
DX: Z09 Encounter for follow-up examination after completed treatment for conditions other than malignant neoplasm (principal); Z96.641 Presence of right artificial hip joint
CPT/HCPCS: 73502

== ENCOUNTER → 2018-09-20 | Outpatient (CLI) | payer MEDICARE, OTHER ==
--- NOTE | 2018-09-20 12:17 | PN ---
Date/Time of Note Date/Time of Note DATE: 09/20/18 TIME: 12:15 Assessment/Plan VTE Prophylaxis Pharmacological prophylaxis: other Assessment/Plan Assessment/Plan 83-year-old female who is doing well after right hip replacement. She has some residual pain that should resolve over time. The patient is advised to follow- up after 3 months. She will continue her activities and physical therapy as instructed Subjective 24 Hr Interval Summary Free Text/Dictation Alma Delia is here for follow-up after right hip replacement. She is progressing well. She does report some pain. There is no history of fever or chills. She is ambulating without support. Exam/Review of Systems Exam Exam Examination shows a healed incision on the right hip. Range of motion is somewhat limited. There is no leg length inequality. X-rays of the right hip show total hip replacement in good position with no evidence of loosening. She has a left hip replacement as well. There is no leg length inequality CHUCK PADILLA Sep 20, 2018 12:17
--- NOTE | 2018-09-21 07:46 | RADRPT ---
PROCEDURE: Right hip series CLINICAL INDICATION: Pain TECHNIQUE: AP pelvis and right hip and frog-leg lateral right hip COMPARISON: 08/23/2018 right hip series and 02/27/2016 pelvis FINDINGS: The patient is status post right total hip replacement with intact hardware and gross anatomic alignm ent. Prior left total hip replacement is again noted with intact hardware and gross anatomic alignmen t. No evidence for acute fractures or dislocations are present. The bilateral sacroiliac joints, sacr um and iliac wings are normal. Generalized osteopenia is present. Phleboliths are noted in the pelvis . IMPRESSION: 1. Status post right total hip replacement with intact hardware and gross anatomic alignment. 2. Status post remote left total hip replacement 3. Generalized osteopenia RPTAT: HDC .Kaur Mckenzie MD, Date Time Electronically viewed and signed by .Kaur Mckenzie MD, on 09/21/2018 07:46 .C/
== END | disposition home or self-care (01) ==
LOC: HKI 10:30
PROVIDERS: ATTEND Orthopaedic Surgery
DX: M25.551 Pain in right hip (principal); Z96.641 Presence of right artificial hip joint
CPT/HCPCS: 73502